=== PATIENT | male | born 1935 | race Caucasian/White ===

== ENCOUNTER 2018-03-18 15:01 | Inpatient (IN) | payer MEDICARE, OTHER ==
[~2018-03-18] VITALS: Ht 182.9 cm; Wt 86.7 kg
[2018-03-18 15:32] VITALS: BP 158/71; PULSE 97; RESP 20; TEMP 97.6; O2SAT 97
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
[2018-03-18 16:28] LABS: AUTOMATED NEUTROPHIL # 4.7 TH/MM3 (1.8-7.7); BASOPHIL % 0.6 % (0.0-2.0); EOSINOPHIL # 0.1 TH/MM3 (0-0.4); EOSINOPHIL % 1.7 % (0.0-4.0); HEMATOCRIT 42.3 % (39.0-51.0); HEMOGLOBIN 14.3 GM/DL (13.0-17.0); LYMPH % 32.2 % (9.0-44.0); LYMPHOCYTE # 2.6 TH/MM3 (1.0-4.8); MEAN CELL VOLUME 85.7 FL (80.0-100.0); MEAN CORPUSCULAR HEMOGLOBIN 28.9 PG (27.0-34.0); MEAN CORPUSCULAR HGB CONC 33.7 % (32.0-36.0); MEAN PLATELET VOLUME 8.7 FL (7.0-11.0); MONO % 7.1 % (0.0-8.0); MONOCYTE # 0.6 TH/MM3 (0-0.9); NEUT % 58.4 % (16.0-70.0); PLATELET COUNT 305 TH/MM3 (150-450); RED BLOOD COUNT 4.94 MIL/MM3 (4.50-5.90); RED CELL DISTRIBUTION WIDTH 13.3 % (11.6-17.2); WHITE BLOOD COUNT 8.1 TH/MM3 (4.0-11.0)
[2018-03-18 16:33] LABS: BILIRUBIN, URINE NEG (NEG); BLOOD, URINE NEG (NEG); GLUCOSE,URINE NEG (NEG); KETONE, URINE NEG (NEG); MUCUS URINE FEW /lpf (OCC); NITRITE,URINE NEG (NEG); URINE COLOR LIGHT-YELLOW (YELLW/STRAW); URINE LEUKOCYTE ESTERASE NEG (NEG)
[2018-03-18 16:45] LABS: ALBUMIN 3.8 GM/DL (3.4-5.0); AST (GOT) 13 U/L (15-37); BICARBONATE 27.2 MEQ/L (21.0-32.0); BLOOD UREA NITROGEN 15 MG/DL (7-18); CALCIUM 8.8 MG/DL (8.5-10.1); CHLORIDE 98 MEQ/L (98-107); CREATININE 1.16 MG/DL (0.60-1.30); GLOMERULAR FILTRATION RATE 60 ML/MIN (>89); GLUCOSE,RANDOM 121 MG/DL (74-106); SODIUM (NA) 137 MEQ/L (136-145)
[2018-03-18 16:46] LABS: ALT (GPT) 19 U/L (12-78)
[2018-03-18 16:56] LABS: ALKALINE PHOSPHATASE 73 U/L (45-117); TOTAL BILIRUBIN ADULT 0.3 MG/DL (0.2-1.0)
[2018-03-18] MEDS ORDERED: LEVO125T4 PO (17:14)
[2018-03-18] MEDS ORDERED: ASPI81TA16 PO (17:14)
[2018-03-18] MEDS ORDERED: LOSA100T PO (17:14)
[2018-03-18] MEDS ORDERED: DEPA125T PO (17:14)
[2018-03-18] MEDS ORDERED: AMLO10 PO (17:14)
[2018-03-18] MEDS ORDERED: VITA500T4 PO (17:14)
[2018-03-18] MEDS ORDERED: SERO25TA PO (17:14)
[2018-03-18] MEDS ORDERED: SENN1TAB27 PO (17:14)
[2018-03-18] MEDS ORDERED: TRAZ50TA12 PO (17:14)
[2018-03-18] MEDS ORDERED: ISOS60TA PO (17:14)
[2018-03-18] MEDS ORDERED: HYDR25TA5 PO (17:14)
[2018-03-18] MEDS ORDERED: MELA3TAB52 PO (17:14)
[2018-03-18] MEDS ORDERED: COLA100C5 PO (17:14)
[2018-03-18] MEDS ORDERED: GABA100C4 PO (17:14)
[2018-03-18] MEDS ORDERED: QUEtiapine FUMARATE 25 MG TAB PO ONE (21:30)
[2018-03-18] MEDS ORDERED: traZODone HCL 50 MG TAB PO ONE (21:30)
[2018-03-18] MEDS ORDERED: DIVALPROEX SODIUM DELAYED RELEASE 125 MG TAB PO ONE (21:30)
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
[2018-03-18 22:47] VITALS: BP 148/68; PULSE 78; RESP 18
[2018-03-19 02:26] VITALS: BP 142/58; PULSE 80; RESP 18; O2SAT 98
[2018-03-19 12:09] VITALS: BP 120/62; PULSE 89; RESP 18; TEMP 98.7; O2SAT 98
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
[2018-03-19] MEDS ORDERED: ACETAMINOPHEN 325 MG TAB PO PRN (15:00)
[2018-03-19] MEDS ORDERED: ALUMINUM/MAGNESIUM/SIMETH 30 ML CUP PO PRN (15:00)
[2018-03-19] MEDS ORDERED: MAGNESIUM HYDROXIDE SUSP 30 ML CUP PO PRN (15:00)
[2018-03-19 15:30] VITALS: BP 136/85; PULSE 92; RESP 18; TEMP 97.8; O2SAT 97
[2018-03-20 06:08] VITALS: BP 125/76; PULSE 52; RESP 18; O2SAT 99
[2018-03-20 11:45] LABS: BICARBONATE 29.1 MEQ/L (21.0-32.0); BLOOD UREA NITROGEN 17 MG/DL (7-18); CALCIUM 9.6 MG/DL (8.5-10.1); CHLORIDE 99 MEQ/L (98-107); CREATININE 1.01 MG/DL (0.60-1.30); GLOMERULAR FILTRATION RATE 71 ML/MIN (>89); GLUCOSE,RANDOM 120 MG/DL (74-106); SODIUM (NA) 137 MEQ/L (136-145)
[2018-03-20 11:46] LABS: CHOLESTEROL 280 MG/DL (120-200)
[2018-03-20 11:48] LABS: CHOLESTEROL/ HDL RATIO 6.94 RATIO; HDL CHOLESTEROL 40.3 MG/DL (40.0-60.0); LDL CHOLESTEROL 174 MG/DL (0-99); TRIGLYCERIDES 329 MG/DL (42-150)
[2018-03-20] MEDS ORDERED: hydrOXYzine HCL 50 MG TAB PO PRN (13:30)
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
[2018-03-20] MEDS ORDERED: PILL SPLITTER OTHER PRN (14:15)
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
[2018-03-20 17:39] VITALS: BP 187/78; PULSE 70; RESP 18; TEMP 97.6; O2SAT 98
[2018-03-20 17:53] VITALS: BP 146/78
[2018-03-20] MEDS ORDERED: QUEtiapine FUMARATE 25 MG TAB PO SCH (21:00)
[2018-03-20] MEDS: DIVALPROEX SODIUM SPRINKLES 125 MG CAP PO SCH (21:00)
[2018-03-20] MEDS: traZODone HCL 50 MG TAB PO SCH (21:00)
[2018-03-20] MEDS: SENNOSIDES 8.6 MG TAB PO SCH (21:09)
[2018-03-20] MEDS: GABAPENTIN 100 MG CAP PO SCH (21:09)
[2018-03-20] MEDS: DOCUSATE SODIUM 100 MG CAP PO SCH (21:09)
[2018-03-20] MEDS: MELATONIN 5 MG TAB PO SCH (21:09)
[2018-03-21 06:04] VITALS: BP 164/70; PULSE 72; RESP 16; TEMP 97.2; O2SAT 97
[2018-03-21] MEDS: LEVOTHYROXINE SODIUM 125 MCG TAB PO SCH (06:41)
[2018-03-21] MEDS: ISOSORBIDE MONONITRATE 60 MG CR TAB (IMDUR) PO SCH (06:41)
[2018-03-21 08:00] VITALS: BP 146/67; PULSE 54
[2018-03-21] MEDS: GABAPENTIN 100 MG CAP PO SCH ×2 (08:36→20:53)
[2018-03-21] MEDS: HYDROCHLOROTHIAZIDE 25 MG TAB PO SCH (08:37)
[2018-03-21] MEDS: DOCUSATE SODIUM 100 MG CAP PO SCH ×2 (08:37→20:52)
[2018-03-21] MEDS: ASPIRIN EC 81 MG TABEC PO SCH (08:37)
[2018-03-21] MEDS: LOSARTAN 50 MG TAB PO SCH (08:37)
[2018-03-21] MEDS: CYANOCOBALAMIN 1,000 MCG TAB PO SCH (08:38)
[2018-03-21] MEDS ORDERED: GLUCAGON 1 MG/ML VIAL OTHER PRN (12:15)
[2018-03-21] MEDS ORDERED: DEXTROSE 50% IN WATER 50 ML VIAL(D50) IV PUSH PRN (12:15)
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
[2018-03-21] MEDS ORDERED: hydrALAZINE HCL 10 MG TAB PO PRN (15:30)
[2018-03-21] MEDS: INSULIN ASPART SUPPLEMENTAL SCALE SQ SCH ×2 (16:43→20:54)
[2018-03-21 17:58] VITALS: BP 131/65; PULSE 77; RESP 18; TEMP 97.6; O2SAT 96
[2018-03-21] MEDS: MELATONIN 5 MG TAB PO SCH (20:52)
[2018-03-21] MEDS: SENNOSIDES 8.6 MG TAB PO SCH (20:54)
[2018-03-22] MEDS: LEVOTHYROXINE SODIUM 125 MCG TAB PO SCH (06:02)
[2018-03-22 06:30] VITALS: BP 157/73; PULSE 79; RESP 18; TEMP 98; O2SAT 98
[2018-03-22] MEDS: ISOSORBIDE MONONITRATE 60 MG CR TAB (IMDUR) PO SCH (06:50)
[2018-03-22] MEDS: INSULIN ASPART SUPPLEMENTAL SCALE SQ SCH ×4 (08:00→21:00)
[2018-03-22] MEDS: ASPIRIN EC 81 MG TABEC PO SCH (09:31)
[2018-03-22] MEDS: LOSARTAN 50 MG TAB PO SCH (09:31)
[2018-03-22] MEDS: DOCUSATE SODIUM 100 MG CAP PO SCH ×2 (09:31→21:07)
[2018-03-22] MEDS: GABAPENTIN 100 MG CAP PO SCH ×2 (09:32→21:10)
[2018-03-22] MEDS: CYANOCOBALAMIN 1,000 MCG TAB PO SCH (09:32)
[2018-03-22] MEDS: HYDROCHLOROTHIAZIDE 25 MG TAB PO SCH (09:32)
[2018-03-22] MEDS: metFORMIN HCL 500 MG TAB PO SCH (09:32)
[2018-03-22] MEDS: DIVALPROEX SODIUM SPRINKLES 125 MG CAP PO SCH ×2 (10:48→21:08)
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
--- NOTE | 2018-03-22 15:35 | PD.TTN ---
Patient Problems 1. Discharge planning 2. Medication compliance 3. Knowledge deficit 4. Lack of coping skills Progress Toward Goals Provider Present: Dr. Sergio Frank Nurse(s) Input: 03/22/18- Joslyn- lupillo compliant/appropriate with staff. Psychiatric Counselors Present: Anjali Lowe LCSW Psych Therapist Input: 03/22/18-Pt. is uncooperative and has no inisght. Group Spec/RT/OT/VILLATORO Present: SHAUNA Bobo Group Spec/RT/OT/VILLATORO Input: 03/22/18- Pt. attends selct groups. Jimbo Aragon March 22, 2018 15:35
[2018-03-22 16:57] VITALS: BP 135/67; PULSE 68; RESP 19; TEMP 98.2; O2SAT 97
[2018-03-22] MEDS: SENNOSIDES 8.6 MG TAB PO SCH (21:09)
[2018-03-22] MEDS: MELATONIN 5 MG TAB PO SCH (21:09)
[2018-03-23] MEDS: LEVOTHYROXINE SODIUM 125 MCG TAB PO SCH (05:53)
[2018-03-23 06:39] VITALS: BP 146/90; PULSE 84; RESP 18; TEMP 97.9; O2SAT 97
[2018-03-23] MEDS: ISOSORBIDE MONONITRATE 60 MG CR TAB (IMDUR) PO SCH (06:46)
[2018-03-23] MEDS: INSULIN ASPART SUPPLEMENTAL SCALE SQ SCH ×4 (08:00→21:47)
[2018-03-23] MEDS: DIVALPROEX SODIUM SPRINKLES 125 MG CAP PO SCH ×3 (09:00→21:43)
[2018-03-23] MEDS ORDERED: hydrALAZINE HCL 10 MG TAB PO SCH (09:00)
[2018-03-23] MEDS: DOCUSATE SODIUM 100 MG CAP PO SCH ×2 (10:18→21:43)
[2018-03-23] MEDS: CYANOCOBALAMIN 1,000 MCG TAB PO SCH (10:19)
[2018-03-23] MEDS: ASPIRIN EC 81 MG TABEC PO SCH (10:19)
[2018-03-23] MEDS: GABAPENTIN 100 MG CAP PO SCH ×2 (10:19→21:44)
[2018-03-23] MEDS: metFORMIN HCL 500 MG TAB PO SCH ×2 (10:19→17:06)
[2018-03-23] MEDS: HYDROCHLOROTHIAZIDE 25 MG TAB PO SCH (10:19)
[2018-03-23] MEDS: LOSARTAN 50 MG TAB PO SCH (10:19)
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
[2018-03-23] MEDS: QUEtiapine FUMARATE 25 MG TAB PO SCH ×2 (15:12→21:43)
[2018-03-23 17:50] VITALS: BP 156/67; PULSE 79; RESP 18; TEMP 97.5; O2SAT 97
[2018-03-23 20:55] VITALS: BP 174/72; PULSE 57; RESP 16
[2018-03-23] MEDS: MELATONIN 5 MG TAB PO SCH (21:43)
[2018-03-23] MEDS: SENNOSIDES 8.6 MG TAB PO SCH (21:44)
[2018-03-23] MEDS: traZODone HCL 50 MG TAB PO SCH (21:44)
[2018-03-24] MEDS: LEVOTHYROXINE SODIUM 125 MCG TAB PO SCH (05:57)
[2018-03-24] MEDS: ISOSORBIDE MONONITRATE 60 MG CR TAB (IMDUR) PO SCH (06:06)
[2018-03-24] MEDS: metFORMIN HCL 500 MG TAB PO SCH ×2 (06:06→15:57)
[2018-03-24] MEDS: INSULIN ASPART SUPPLEMENTAL SCALE SQ SCH ×4 (08:00→21:00)
[2018-03-24] MEDS: ASPIRIN EC 81 MG TABEC PO SCH (08:59)
[2018-03-24] MEDS: HYDROCHLOROTHIAZIDE 25 MG TAB PO SCH (08:59)
[2018-03-24] MEDS: LOSARTAN 50 MG TAB PO SCH (09:00)
[2018-03-24] MEDS: DIVALPROEX SODIUM SPRINKLES 125 MG CAP PO SCH ×2 (09:00→21:45)
[2018-03-24] MEDS: DOCUSATE SODIUM 100 MG CAP PO SCH ×2 (09:00→21:45)
[2018-03-24] MEDS: QUEtiapine FUMARATE 25 MG TAB PO SCH ×4 (09:01→21:45)
[2018-03-24] MEDS: GABAPENTIN 100 MG CAP PO SCH ×2 (09:01→21:45)
[2018-03-24] MEDS: hydrALAZINE HCL 10 MG TAB PO SCH ×3 (09:01→22:58)
[2018-03-24] MEDS: CYANOCOBALAMIN 1,000 MCG TAB PO SCH (09:04)
[2018-03-24 11:57] VITALS: BP 123/60; PULSE 80
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
[2018-03-24 15:44] VITALS: BP 145/62; PULSE 86; RESP 17; TEMP 98.4; O2SAT 95
[2018-03-24] MEDS: traZODone HCL 50 MG TAB PO SCH (21:44)
[2018-03-24] MEDS: MELATONIN 5 MG TAB PO SCH (21:44)
[2018-03-24] MEDS: SENNOSIDES 8.6 MG TAB PO SCH (21:45)
[2018-03-25 06:11] VITALS: BP 117/64; PULSE 90; RESP 18; TEMP 98.2; O2SAT 96
[2018-03-25] MEDS: hydrALAZINE HCL 10 MG TAB PO SCH ×3 (06:24→20:47)
[2018-03-25] MEDS: metFORMIN HCL 500 MG TAB PO SCH ×2 (06:24→16:00)
[2018-03-25] MEDS: LEVOTHYROXINE SODIUM 125 MCG TAB PO SCH (06:25)
[2018-03-25] MEDS: ISOSORBIDE MONONITRATE 60 MG CR TAB (IMDUR) PO SCH (06:25)
[2018-03-25] MEDS: INSULIN ASPART SUPPLEMENTAL SCALE SQ SCH ×4 (08:00→21:00)
[2018-03-25] MEDS: DIVALPROEX SODIUM SPRINKLES 125 MG CAP PO SCH ×2 (09:00→20:46)
[2018-03-25] MEDS: QUEtiapine FUMARATE 25 MG TAB PO SCH ×4 (09:35→21:00)
[2018-03-25] MEDS: DOCUSATE SODIUM 100 MG CAP PO SCH ×2 (09:35→20:45)
[2018-03-25] MEDS: LOSARTAN 50 MG TAB PO SCH (09:36)
[2018-03-25] MEDS: CYANOCOBALAMIN 1,000 MCG TAB PO SCH (09:36)
[2018-03-25] MEDS: ASPIRIN EC 81 MG TABEC PO SCH (09:37)
[2018-03-25] MEDS: HYDROCHLOROTHIAZIDE 25 MG TAB PO SCH (09:37)
[2018-03-25] MEDS: GABAPENTIN 100 MG CAP PO SCH ×2 (09:37→20:45)
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
[2018-03-25 18:52] VITALS: BP 129/64; PULSE 50; TEMP 97.7; O2SAT 97
[2018-03-25] MEDS: traZODone HCL 50 MG TAB PO SCH (20:46)
[2018-03-25] MEDS: MELATONIN 5 MG TAB PO SCH (20:46)
[2018-03-25] MEDS: SENNOSIDES 8.6 MG TAB PO SCH (21:00)
[2018-03-26] MEDS: hydrALAZINE HCL 10 MG TAB PO SCH ×3 (05:57→22:03)
[2018-03-26] MEDS: LEVOTHYROXINE SODIUM 125 MCG TAB PO SCH (05:57)
[2018-03-26] MEDS: ISOSORBIDE MONONITRATE 60 MG CR TAB (IMDUR) PO SCH (05:57)
[2018-03-26] MEDS: metFORMIN HCL 500 MG TAB PO SCH ×2 (05:58→16:00)
[2018-03-26] MEDS: INSULIN ASPART SUPPLEMENTAL SCALE SQ SCH ×4 (06:22→21:00)
[2018-03-26 06:40] VITALS: BP 150/65; PULSE 87; RESP 19; TEMP 97.9; O2SAT 94
[2018-03-26 06:56] VITALS: BP 150/65; PULSE 87; RESP 19; TEMP 97.9; O2SAT 94
[2018-03-26] MEDS: ASPIRIN EC 81 MG TABEC PO SCH (08:40)
[2018-03-26] MEDS: CYANOCOBALAMIN 1,000 MCG TAB PO SCH (08:40)
[2018-03-26] MEDS: DIVALPROEX SODIUM SPRINKLES 125 MG CAP PO SCH ×2 (08:40→21:06)
[2018-03-26] MEDS: DOCUSATE SODIUM 100 MG CAP PO SCH ×2 (08:40→21:06)
[2018-03-26] MEDS: QUEtiapine FUMARATE 25 MG TAB PO SCH ×4 (08:40→21:06)
[2018-03-26] MEDS: GABAPENTIN 100 MG CAP PO SCH ×2 (08:41→21:05)
[2018-03-26] MEDS: HYDROCHLOROTHIAZIDE 25 MG TAB PO SCH (08:41)
[2018-03-26] MEDS: LOSARTAN 50 MG TAB PO SCH (08:41)
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
[2018-03-26 17:26] VITALS: BP 140/76; PULSE 82; RESP 20; TEMP 98; O2SAT 95
[2018-03-26] MEDS: MELATONIN 5 MG TAB PO SCH (21:06)
[2018-03-26 21:31] VITALS: BP 137/59; PULSE 82; RESP 18; TEMP 98.1; O2SAT 94
[2018-03-26] MEDS: traZODone HCL 50 MG TAB PO SCH (22:04)
[2018-03-26] MEDS: SENNOSIDES 8.6 MG TAB PO SCH (22:04)
[2018-03-27 06:00] VITALS: BP 140/66; PULSE 46; RESP 14; TEMP 97.6; O2SAT 94
[2018-03-27] MEDS: LEVOTHYROXINE SODIUM 125 MCG TAB PO SCH (06:09)
[2018-03-27] MEDS: metFORMIN HCL 500 MG TAB PO SCH ×2 (06:09→16:00)
[2018-03-27] MEDS: ISOSORBIDE MONONITRATE 60 MG CR TAB (IMDUR) PO SCH (06:09)
[2018-03-27] MEDS: hydrALAZINE HCL 10 MG TAB PO SCH ×3 (06:10→20:54)
[2018-03-27] MEDS: QUEtiapine FUMARATE 25 MG TAB PO SCH ×4 (08:00→20:47)
[2018-03-27] MEDS: INSULIN ASPART SUPPLEMENTAL SCALE SQ SCH ×4 (08:00→20:52)
[2018-03-27] MEDS: LOSARTAN 50 MG TAB PO SCH (09:00)
[2018-03-27] MEDS: HYDROCHLOROTHIAZIDE 25 MG TAB PO SCH (09:00)
[2018-03-27] MEDS: CYANOCOBALAMIN 1,000 MCG TAB PO SCH (09:03)
[2018-03-27] MEDS: GABAPENTIN 100 MG CAP PO SCH ×2 (09:03→20:46)
[2018-03-27] MEDS: DIVALPROEX SODIUM SPRINKLES 125 MG CAP PO SCH ×2 (09:03→20:52)
[2018-03-27] MEDS: ASPIRIN EC 81 MG TABEC PO SCH (09:03)
[2018-03-27] MEDS: DOCUSATE SODIUM 100 MG CAP PO SCH ×2 (09:03→20:44)
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
[2018-03-27 18:17] VITALS: BP 162/74; PULSE 91; RESP 18; TEMP 97.6; O2SAT 97
[2018-03-27 20:00] VITALS: BP 110/58
[2018-03-27] MEDS: SENNOSIDES 8.6 MG TAB PO SCH (20:46)
[2018-03-27] MEDS: traZODone HCL 50 MG TAB PO SCH (20:47)
[2018-03-27] MEDS: MELATONIN 5 MG TAB PO SCH (20:51)
[2018-03-28 06:32] VITALS: BP 119/72; PULSE 75; RESP 15; TEMP 97.7
[2018-03-28] MEDS: LEVOTHYROXINE SODIUM 125 MCG TAB PO SCH (06:35)
[2018-03-28] MEDS: ISOSORBIDE MONONITRATE 60 MG CR TAB (IMDUR) PO SCH (06:35)
[2018-03-28] MEDS: hydrALAZINE HCL 10 MG TAB PO SCH ×3 (06:35→20:45)
[2018-03-28] MEDS: INSULIN ASPART SUPPLEMENTAL SCALE SQ SCH ×4 (08:00→20:44)
[2018-03-28] MEDS: QUEtiapine FUMARATE 25 MG TAB PO SCH ×4 (08:00→20:41)
[2018-03-28] MEDS: metFORMIN HCL 500 MG TAB PO SCH ×2 (09:00→16:00)
[2018-03-28] MEDS: DIVALPROEX SODIUM SPRINKLES 125 MG CAP PO SCH ×2 (09:00→20:39)
[2018-03-28] MEDS: DOCUSATE SODIUM 100 MG CAP PO SCH ×2 (09:00→20:41)
[2018-03-28] MEDS: LOSARTAN 50 MG TAB PO SCH (09:02)
[2018-03-28] MEDS: ASPIRIN EC 81 MG TABEC PO SCH (09:02)
[2018-03-28] MEDS: HYDROCHLOROTHIAZIDE 25 MG TAB PO SCH (09:02)
[2018-03-28] MEDS: CYANOCOBALAMIN 1,000 MCG TAB PO SCH (09:02)
[2018-03-28] MEDS: GABAPENTIN 100 MG CAP PO SCH ×2 (09:02→20:40)
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
[2018-03-28 18:39] VITALS: BP 100/55; PULSE 55; RESP 16; TEMP 97.6; O2SAT 95
[2018-03-28] MEDS: MELATONIN 5 MG TAB PO SCH (20:40)
[2018-03-28] MEDS: traZODone HCL 50 MG TAB PO SCH (20:41)
[2018-03-28] MEDS: SENNOSIDES 8.6 MG TAB PO SCH (20:41)
[2018-03-29 06:00] VITALS: BP 178/69; PULSE 52; RESP 18; TEMP 97.6; O2SAT 92
[2018-03-29] MEDS: LEVOTHYROXINE SODIUM 125 MCG TAB PO SCH (06:00)
[2018-03-29] MEDS: hydrALAZINE HCL 10 MG TAB PO SCH ×3 (06:00→21:45)
[2018-03-29] MEDS: ISOSORBIDE MONONITRATE 60 MG CR TAB (IMDUR) PO SCH (06:10)
[2018-03-29] MEDS: metFORMIN HCL 500 MG TAB PO SCH ×2 (08:00→16:00)
[2018-03-29] MEDS: INSULIN ASPART SUPPLEMENTAL SCALE SQ SCH ×4 (08:00→21:00)
[2018-03-29] MEDS: QUEtiapine FUMARATE 25 MG TAB PO SCH ×4 (08:00→21:45)
[2018-03-29] MEDS: GABAPENTIN 100 MG CAP PO SCH ×2 (09:00→21:45)
[2018-03-29] MEDS: DIVALPROEX SODIUM SPRINKLES 125 MG CAP PO SCH ×2 (09:00→21:44)
[2018-03-29] MEDS: HYDROCHLOROTHIAZIDE 25 MG TAB PO SCH (09:00)
[2018-03-29] MEDS: CYANOCOBALAMIN 1,000 MCG TAB PO SCH (09:00)
[2018-03-29] MEDS: LOSARTAN 50 MG TAB PO SCH (09:00)
[2018-03-29] MEDS: DOCUSATE SODIUM 100 MG CAP PO SCH ×2 (09:00→21:44)
[2018-03-29] MEDS: ASPIRIN EC 81 MG TABEC PO SCH (09:00)
--- NOTE | 2018-03-29 09:11 | PD.TTN ---
Patient Problems 1. Discharge planning 2. Medication compliance 3. Knowledge deficit 4. Lack of coping skills Progress Toward Goals Provider Present: Dr. Sergio Frank Provider Input: Needs Placement Nurse(s) Input: 03/22/18- Joslyn- med compliant/appropriate with 03/29/18: Med Compliant, Sleeps well, improved Psychiatric Counselors Present: Anjali Lowe, RAILWAY YARD ASSISTANT, Natalie No, [facility], Kenyetta Dumont, [facility] Psych Therapist Input: 03/22/18-Pt. is uncooperative and has no inisght. 03/29/18: Isolates to room Group Spec/RT/OT/VILLATORO Present: ELDA Gilmore, SHAUNA Bobo Group Spec/RT/OT/VILLATORO Input: 03/22/18- Pt. attends select groups with encouragement 03/29/18: Pt has been isolating and needs encouragement to attend the Group activities. Additional Input Needs Placement Documentation Scribe: Yeni Alfaro March 29, 2018 09:11
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
[2018-03-29 17:42] VITALS: BP 138/76; PULSE 85; RESP 18; O2SAT 94
[2018-03-29] MEDS: SENNOSIDES 8.6 MG TAB PO SCH (21:45)
[2018-03-29] MEDS: MELATONIN 5 MG TAB PO SCH (21:45)
[2018-03-29] MEDS: traZODone HCL 50 MG TAB PO SCH (21:45)
[2018-03-30 05:41] VITALS: BP 125/54; PULSE 71; RESP 15; TEMP 97.2; O2SAT 98
[2018-03-30] MEDS: hydrALAZINE HCL 10 MG TAB PO SCH ×3 (06:23→22:00)
[2018-03-30] MEDS: metFORMIN HCL 500 MG TAB PO SCH ×2 (06:23→16:01)
[2018-03-30] MEDS: LEVOTHYROXINE SODIUM 125 MCG TAB PO SCH (06:24)
[2018-03-30] MEDS: ISOSORBIDE MONONITRATE 60 MG CR TAB (IMDUR) PO SCH (06:24)
[2018-03-30] MEDS: INSULIN ASPART SUPPLEMENTAL SCALE SQ SCH ×4 (08:00→21:00)
[2018-03-30] MEDS: ASPIRIN EC 81 MG TABEC PO SCH (08:54)
[2018-03-30] MEDS: DOCUSATE SODIUM 100 MG CAP PO SCH ×2 (08:54→21:00)
[2018-03-30] MEDS: DIVALPROEX SODIUM SPRINKLES 125 MG CAP PO SCH ×2 (08:54→21:00)
[2018-03-30] MEDS: CYANOCOBALAMIN 1,000 MCG TAB PO SCH (08:55)
[2018-03-30] MEDS: GABAPENTIN 100 MG CAP PO SCH ×2 (08:55→21:00)
[2018-03-30] MEDS: QUEtiapine FUMARATE 25 MG TAB PO SCH ×4 (08:56→21:00)
[2018-03-30] MEDS: HYDROCHLOROTHIAZIDE 25 MG TAB PO SCH (08:56)
[2018-03-30] MEDS: LOSARTAN 50 MG TAB PO SCH (08:56)
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
[2018-03-30 13:20] VITALS: BP 134/64; PULSE 64; RESP 18; TEMP 98.1; O2SAT 97
[2018-03-30 18:38] VITALS: BP 119/61; PULSE 68; RESP 17; TEMP 98.1; O2SAT 99
[2018-03-30] MEDS: SENNOSIDES 8.6 MG TAB PO SCH (21:00)
[2018-03-30] MEDS: traZODone HCL 50 MG TAB PO SCH (21:00)
[2018-03-30] MEDS: MELATONIN 5 MG TAB PO SCH (21:00)
[2018-03-31 06:22] VITALS: BP 141/66; PULSE 62; RESP 16; TEMP 97.2; O2SAT 95
[2018-03-31] MEDS: metFORMIN HCL 500 MG TAB PO SCH ×2 (06:30→15:56)
[2018-03-31] MEDS: ISOSORBIDE MONONITRATE 60 MG CR TAB (IMDUR) PO SCH (06:30)
[2018-03-31] MEDS: LEVOTHYROXINE SODIUM 125 MCG TAB PO SCH (06:30)
[2018-03-31] MEDS: hydrALAZINE HCL 10 MG TAB PO SCH ×3 (06:31→21:26)
[2018-03-31] MEDS: INSULIN ASPART SUPPLEMENTAL SCALE SQ SCH ×4 (06:49→21:00)
[2018-03-31] MEDS: HYDROCHLOROTHIAZIDE 25 MG TAB PO SCH (08:51)
[2018-03-31] MEDS: LOSARTAN 50 MG TAB PO SCH (08:51)
[2018-03-31] MEDS: ASPIRIN EC 81 MG TABEC PO SCH (08:51)
[2018-03-31] MEDS: QUEtiapine FUMARATE 25 MG TAB PO SCH ×4 (08:51→21:26)
[2018-03-31] MEDS: GABAPENTIN 100 MG CAP PO SCH ×2 (08:51→21:26)
[2018-03-31] MEDS: CYANOCOBALAMIN 1,000 MCG TAB PO SCH (08:52)
[2018-03-31] MEDS: DIVALPROEX SODIUM SPRINKLES 125 MG CAP PO SCH ×2 (08:52→21:00)
[2018-03-31] MEDS: DOCUSATE SODIUM 100 MG CAP PO SCH ×2 (08:52→21:26)
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
[2018-03-31 18:00] VITALS: BP 126/61; PULSE 55; RESP 16; TEMP 98; O2SAT 95
[2018-03-31] MEDS: MELATONIN 5 MG TAB PO SCH (21:26)
[2018-03-31] MEDS: SENNOSIDES 8.6 MG TAB PO SCH (21:26)
[2018-03-31] MEDS: traZODone HCL 50 MG TAB PO SCH (21:27)
[2018-04-01] MEDS: hydrALAZINE HCL 10 MG TAB PO SCH ×3 (06:00→20:55)
[2018-04-01] MEDS: ISOSORBIDE MONONITRATE 60 MG CR TAB (IMDUR) PO SCH (07:00)
[2018-04-01] MEDS: INSULIN ASPART SUPPLEMENTAL SCALE SQ SCH ×4 (08:00→20:54)
[2018-04-01] MEDS: CYANOCOBALAMIN 1,000 MCG TAB PO SCH (09:00)
[2018-04-01] MEDS: DOCUSATE SODIUM 100 MG CAP PO SCH ×2 (10:03→20:50)
[2018-04-01] MEDS: ASPIRIN EC 81 MG TABEC PO SCH (10:04)
[2018-04-01] MEDS: LOSARTAN 50 MG TAB PO SCH (10:04)
[2018-04-01] MEDS: HYDROCHLOROTHIAZIDE 25 MG TAB PO SCH (10:04)
[2018-04-01] MEDS: GABAPENTIN 100 MG CAP PO SCH ×2 (10:05→20:50)
[2018-04-01] MEDS: DIVALPROEX SODIUM SPRINKLES 125 MG CAP PO SCH ×2 (10:07→20:51)
[2018-04-01] MEDS: metFORMIN HCL 500 MG TAB PO SCH ×2 (10:10→16:03)
[2018-04-01] MEDS: QUEtiapine FUMARATE 25 MG TAB PO SCH ×4 (10:11→20:51)
[2018-04-01] MEDS: LEVOTHYROXINE SODIUM 125 MCG TAB PO SCH (10:11)
[2018-04-01 10:29] VITALS: BP 144/65; PULSE 56; RESP 14; TEMP 97.8
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
[2018-04-01 18:00] VITALS: BP 130/58; PULSE 50; RESP 18; TEMP 97.8; O2SAT 94
[2018-04-01] MEDS: SENNOSIDES 8.6 MG TAB PO SCH (20:50)
[2018-04-01] MEDS: MELATONIN 5 MG TAB PO SCH (20:51)
[2018-04-01] MEDS: traZODone HCL 50 MG TAB PO SCH (20:51)
[2018-04-02 05:32] VITALS: BP 130/63; PULSE 48; RESP 18; TEMP 98.2
[2018-04-02] MEDS: hydrALAZINE HCL 10 MG TAB PO SCH ×3 (06:00→22:00)
[2018-04-02] MEDS: metFORMIN HCL 500 MG TAB PO SCH ×2 (06:06→16:49)
[2018-04-02] MEDS: LEVOTHYROXINE SODIUM 125 MCG TAB PO SCH (06:06)
[2018-04-02] MEDS: ISOSORBIDE MONONITRATE 60 MG CR TAB (IMDUR) PO SCH (06:07)
[2018-04-02] MEDS: INSULIN ASPART SUPPLEMENTAL SCALE SQ SCH ×4 (06:20→21:00)
[2018-04-02] MEDS: ASPIRIN EC 81 MG TABEC PO SCH (08:55)
[2018-04-02] MEDS: DOCUSATE SODIUM 100 MG CAP PO SCH ×2 (08:55→21:00)
[2018-04-02] MEDS: LOSARTAN 50 MG TAB PO SCH (08:55)
[2018-04-02] MEDS: HYDROCHLOROTHIAZIDE 25 MG TAB PO SCH (08:55)
[2018-04-02] MEDS: QUEtiapine FUMARATE 25 MG TAB PO SCH ×4 (08:55→21:00)
[2018-04-02] MEDS: GABAPENTIN 100 MG CAP PO SCH ×2 (08:55→21:00)
[2018-04-02] MEDS: CYANOCOBALAMIN 1,000 MCG TAB PO SCH (08:56)
[2018-04-02] MEDS: DIVALPROEX SODIUM SPRINKLES 125 MG CAP PO SCH ×2 (08:56→21:00)
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
[2018-04-02 13:22] VITALS: BP 125/57; PULSE 41; PULSE 63
[2018-04-02 18:47] VITALS: BP 120/64; PULSE 54; RESP 16; TEMP 98.2; O2SAT 95
[2018-04-02] MEDS: MELATONIN 5 MG TAB PO SCH (21:00)
[2018-04-02] MEDS: SENNOSIDES 8.6 MG TAB PO SCH (21:00)
[2018-04-02] MEDS: traZODone HCL 50 MG TAB PO SCH (21:00)
[2018-04-03] MEDS: LEVOTHYROXINE SODIUM 125 MCG TAB PO SCH (06:46)
[2018-04-03] MEDS: metFORMIN HCL 500 MG TAB PO SCH ×2 (06:46→16:36)
[2018-04-03] MEDS: hydrALAZINE HCL 10 MG TAB PO SCH ×3 (06:46→22:15)
[2018-04-03 07:00] VITALS: BP 157/71; PULSE 39; RESP 17; TEMP 97.6; O2SAT 93
[2018-04-03] MEDS: ISOSORBIDE MONONITRATE 60 MG CR TAB (IMDUR) PO SCH (07:00)
[2018-04-03] MEDS: INSULIN ASPART SUPPLEMENTAL SCALE SQ SCH ×4 (08:00→21:00)
[2018-04-03] MEDS: QUEtiapine FUMARATE 25 MG TAB PO SCH ×4 (08:00→21:19)
[2018-04-03] MEDS: CYANOCOBALAMIN 1,000 MCG TAB PO SCH (09:00)
[2018-04-03] MEDS: LOSARTAN 50 MG TAB PO SCH (09:00)
[2018-04-03] MEDS: HYDROCHLOROTHIAZIDE 25 MG TAB PO SCH (10:11)
[2018-04-03] MEDS: DOCUSATE SODIUM 100 MG CAP PO SCH ×2 (10:12→21:20)
[2018-04-03] MEDS: DIVALPROEX SODIUM SPRINKLES 125 MG CAP PO SCH ×2 (10:12→21:19)
[2018-04-03] MEDS: ASPIRIN EC 81 MG TABEC PO SCH (10:12)
[2018-04-03] MEDS: GABAPENTIN 100 MG CAP PO SCH ×2 (10:13→21:19)
[2018-04-03 10:24] VITALS: PULSE 47
[2018-04-03 14:02] VITALS: BP 156/67; PULSE 52; RESP 18; TEMP 97.9; O2SAT 98
--- NOTE | 2018-04-03 14:27 | HHI.PYPN ---
Subjective Chief Complaint: Patient demented with [facility]ive behavior at the [facility] Remarks Reviewed electronic medical record discussed case with staff. Staff reports the patient has had no behaviors he has been cooperative and has a good sense of humor. He has been compliant with his medications. Follow-up was performed in patient's room with nurse present. The patient confused and disorganized today. He was unable to remember that he had just come back from eating hot dogs and hamburgers in the activity room. He was unable to answer any of my questions as to his present condition. 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 Mental Status Examination Appearance: Disheveled Consciousness: Other (Dozing) Motor Activity: Other (No motor abnormalities noted) Speech: Other (No speech during my evaluation) Mood: Other (Calm) Affect: Flat Thought Process & Associations: Other (Limited sample) Hallucination Type: Other (Does not appear to be responding to internal stimuli ) Delusion Type: Other (Limited sample) Suicidal Ideation: No (None voiced) Homicidal Ideation: No (None voiced) Insight: Poor Judgment: Poor Results Vitals/IOs Vital Signs Date Time Temp Pulse Resp B/P (MAP) Pulse Ox O2 Delivery O2 Flow Rate FiO2 04/03/18 14:02 97.9 52 18 156/67 (96) 98 Assessment & Plan Problem List: (1) ALZHEIMER'S DISEASE WITH LATE ONSET ICD Codes: G30.1 - ALZHEIMER'S DISEASE WITH LATE ONSET (2) DEMENTIA IN OTH DISEASES CLASSD ELSWHR W BEHAVIORAL DISTURB ICD Codes: F02.81 - DEMENTIA IN OTH DISEASES CLASSD ELSWHR W BEHAVIORAL DISTURB Assessment & Plan Estimated LOS: Continue with current treatment plan as ordered. Patient's attending psychiatrist will reevaluate tomorrow. Days Justification for Cont. Inpt. Moving this patient to a lower level of care would likely result and decompensation. Request HC Surrog/Guard Advoc?: Yes Lucille Smart April 03, 2018 14:27
[2018-04-03 18:11] VITALS: BP 140/76; PULSE 50; RESP 16; TEMP 98.2; O2SAT 95
[2018-04-03] MEDS: traZODone HCL 50 MG TAB PO SCH (21:18)
[2018-04-03] MEDS: MELATONIN 5 MG TAB PO SCH (21:18)
[2018-04-03] MEDS: SENNOSIDES 8.6 MG TAB PO SCH (21:18)
[2018-04-03 21:31] VITALS: BP 160/70; PULSE 60
[2018-04-04] MEDS: hydrALAZINE HCL 10 MG TAB PO SCH ×2 (06:08→14:00)
[2018-04-04] MEDS: LEVOTHYROXINE SODIUM 125 MCG TAB PO SCH (06:09)
[2018-04-04] MEDS: metFORMIN HCL 500 MG TAB PO SCH ×2 (06:54→15:37)
[2018-04-04] MEDS: ISOSORBIDE MONONITRATE 60 MG CR TAB (IMDUR) PO SCH (06:55)
[2018-04-04 06:56] VITALS: BP 152/65; PULSE 64; RESP 22; TEMP 98.1; O2SAT 97
[2018-04-04] MEDS: INSULIN ASPART SUPPLEMENTAL SCALE SQ SCH ×3 (07:37→15:37)
[2018-04-04] MEDS: DOCUSATE SODIUM 100 MG CAP PO SCH (08:50)
[2018-04-04] MEDS: HYDROCHLOROTHIAZIDE 25 MG TAB PO SCH (08:51)
[2018-04-04] MEDS: DIVALPROEX SODIUM SPRINKLES 125 MG CAP PO SCH (08:51)
[2018-04-04] MEDS: GABAPENTIN 100 MG CAP PO SCH (08:51)
[2018-04-04] MEDS: CYANOCOBALAMIN 1,000 MCG TAB PO SCH (08:51)
[2018-04-04] MEDS: LOSARTAN 50 MG TAB PO SCH (08:51)
[2018-04-04] MEDS: ASPIRIN EC 81 MG TABEC PO SCH (08:51)
[2018-04-04] MEDS: QUEtiapine FUMARATE 25 MG TAB PO SCH ×2 (08:52→12:00)
[2018-04-04 12:08] VITALS: BP 126/55; PULSE 52; RESP 14; O2SAT 93
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
[2018-04-04 15:08] VITALS: BP 108/52; PULSE 46; RESP 16; O2SAT 92
[2018-04-04 15:40] VITALS: PULSE 42; RESP 14; O2SAT 97
[2018-04-04 15:45] LABS: HEMATOCRIT 42.1 % (39.0-51.0); MEAN CELL VOLUME 86.1 FL (80.0-100.0); MEAN CORPUSCULAR HEMOGLOBIN 28.6 PG (27.0-34.0); MEAN CORPUSCULAR HGB CONC 33.2 % (32.0-36.0); MEAN PLATELET VOLUME 9.7 FL (7.0-11.0); PLATELET COUNT 212 TH/MM3 (150-450); RED BLOOD COUNT 4.89 MIL/MM3 (4.50-5.90); RED CELL DISTRIBUTION WIDTH 13.3 % (11.6-17.2); WHITE BLOOD COUNT 7.5 TH/MM3 (4.0-11.0)
[2018-04-04] MEDS ORDERED: QUEtiapine FUMARATE 25 MG TAB PO SCH (16:00)
[2018-04-04 16:09] LABS: BICARBONATE 32.2 MEQ/L (21.0-32.0); CALCIUM 9.3 MG/DL (8.5-10.1); CREATININE 1.16 MG/DL (0.60-1.30)
[2018-04-04] MEDS ORDERED: RESP: ALBUTEROL 2.5 MG/IPRATROPIUM 0.5 MG NEB (PRN) NEB (16:45)
[2018-04-04] MEDS ORDERED: RESP: ALBUTEROL 2.5 MG/IPRATROPIUM 0.5 MG NEB (SCH) NEB ONE (16:50)
[2018-04-04 17:27] VITALS: BP 107/52; PULSE 51; RESP 16; TEMP 98; O2SAT 93
[2018-04-04 17:51] LABS: TROPONIN I 0.53 NG/ML (0.02-0.05)
--- NOTE | 2018-04-04 18:20 | RADRPT ---
EXAM DATE: 04/04/2018 6:16 PM EDT AGE/SEX: 82 years / Male INDICATIONS: Shortness of breath. CLINICAL DATA: This is the patient's initial encounter. Patient reports that signs and symptoms have been present for 1 day and indicates a pain score of 0/10. MEDICAL/SURGICAL HISTORY: None. CABG. COMPARISON: No prior [place] exams available for comparison. FINDINGS: A single AP view of the chest demonstrates the lungs to be symmetrically aerated without evidence of mass, infiltrate or effusion. The cardiomediastinal contours are unremarkable. There is evidence of previous cardiothoracic surgery. Osseous structures are intact. CONCLUSION: No acute intrathoracic disease. Electronically signed by: Elvis Quinones MD 04/04/2018 6:18 PM EDT
[2018-04-04 18:55] VITALS: BP 116/57; PULSE 40; RESP 14; TEMP 98.3; O2SAT 93
[2018-04-04 22:17] LABS: TROPONIN I 0.46 NG/ML (0.02-0.05)
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
--- NOTE | 2018-04-05 14:10 | EKG ---
Date Performed: 04/04/2018 Time Performed: 19:11:48 PTAGE: 82 years EKG: ATRIAL FIBRILLATION WITH SLOW VENTRICULAR RESPONSE MODERATE ST DEPRESSION ABNORMAL ECG PREVIOUS TRACING : 04/04/2018 12.32 DOCTOR: Jeremy Valentine Interpretating Date/Time 04/05/2018 14:08:08
--- NOTE | 2018-04-05 14:25 | EKG ---
Date Performed: 04/04/2018 Time Performed: 12:32:32 PTAGE: 82 years EKG: ATRIAL FIBRILLATION WITH SLOW VENTRICULAR RESPONSE WITH ABERRANT CONDUCTION OR VENTRICULAR PREMATURE COMPLEXES MODERATE ST DEPRESSION ABNORMAL ECG NO PREVIOUS TRACING DOCTOR: Jeremy Valentine Interpretating Date/Time 04/05/2018 14:24:37
[2018-04-06] MEDS ORDERED: ASPIRIN 325 MG TAB PO SCH (09:00)
== END 2018-04-04 19:46 | disposition short-term general hospital (02) | DRG 57 ==
LOC: NEPD 15:01 → NEDA 03-19 14:50 → H260 03-19 15:30 → H250 03-24 19:08 → H260 03-30 05:40 → H250 04-03 22:06
PROVIDERS: ADMIT Psychiatry & Neurology Psychiatry; ATTEND Psychiatry & Neurology Psychiatry
DX: G30.1 Alzheimer's disease with late onset (principal); F02.81 Dementia in other diseases classified elsewhere, unspecified severity, with behavioral disturbance; E11.65 Type 2 diabetes mellitus with hyperglycemia; I48.91 Unspecified atrial fibrillation; R00.1 Bradycardia, unspecified; E03.9 Hypothyroidism, unspecified; E87.6 Hypokalemia; I10 Essential (primary) hypertension; R06.02 Shortness of breath; I25.10 Atherosclerotic heart disease of native coronary artery without angina pectoris; Z79.82 Long term (current) use of aspirin; Z87.891 Personal history of nicotine dependence; Z95.1 Presence of aortocoronary bypass graft; Z88.5 Allergy status to narcotic agent; Z88.8 Allergy status to other drugs, medicaments and biological substances
CPT/HCPCS: 71045; 80048; 80053; 80061; 80164; 80307; 81001; 82140; 82550; 82948; 83036; 84443; 84484; 85025; 85027; 93005; 94664; 99285; J1815

== ENCOUNTER 2018-04-04 20:15 | Inpatient (IN) | payer MEDICARE, OTHER ==
[~2018-04-04] VITALS: Ht 182.9 cm; Wt 83.9 kg
[2018-04-04] MEDS: SODIUM CHLORIDE 0.9% FLUSH 10 ML FLUSH IV FLUSH SCH
[2018-04-04 19:40] VITALS: BP 148/73; PULSE 49; RESP 16; TEMP 97.7; O2SAT 94
[~2018-04-04 20:15] MED LIST: AMLO10 PO; ASPI81TA16 PO; COLA100C5 PO; DEPA125T PO; GABA100C4 PO; HYDR25TA5 PO; ISOS60TA PO; LEVO125T4 PO; LOSA100T PO; MELA3TAB52 PO; SENN1TAB27 PO; SERO25TA PO; TRAZ50TA12 PO; VITA500T4 PO
[2018-04-04] MEDS ORDERED: ACETAMINOPHEN 325 MG TAB PO PRN (20:30)
[2018-04-04] MEDS ORDERED: SODIUM CHLORIDE 0.9% FLUSH 10 ML FLUSH IV FLUSH PRN (20:30)
[2018-04-04] MEDS ORDERED: NALOXONE HCL 0.4 MG/ML AMP IV PUSH PRN (20:30)
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
[2018-04-04 23:10] VITALS: BP 126/61; PULSE 48; RESP 16; TEMP 97.4; O2SAT 96
[2018-04-04 23:44] VITALS: PULSE 37
[2018-04-04] MEDS ORDERED: RESP: ALBUTEROL 2.5 MG/IPRATROPIUM 0.5 MG NEB (PRN) NEB (23:45)
[2018-04-04] MEDS ORDERED: DEXTROSE 50% IN WATER 50 ML VIAL(D50) IV PUSH PRN (23:45)
[2018-04-04] MEDS ORDERED: GLUCAGON 1 MG/ML VIAL OTHER PRN (23:45)
[2018-04-05] VITALS: BP 122/68; PULSE 51; RESP 16; TEMP 97.1; O2SAT 96
[2018-04-05] MEDS ORDERED: MAGNESIUM HYDROXIDE SUSP 30 ML CUP PO PRN
[2018-04-05] MEDS ORDERED: hydrOXYzine HCL 50 MG TAB PO PRN
[2018-04-05] MEDS ORDERED: MELATONIN 5 MG TAB PO PRN
[2018-04-05 03:55] VITALS: BP 150/76; PULSE 52; RESP 16; TEMP 97.9; O2SAT 100
[2018-04-05 05:31] LABS: AUTOMATED NEUTROPHIL # 3.4 TH/MM3 (1.8-7.7); BASOPHIL % 0.5 % (0.0-2.0); EOSINOPHIL # 0.2 TH/MM3 (0-0.4); EOSINOPHIL % 2.4 % (0.0-4.0); HEMATOCRIT 42.5 % (39.0-51.0); HEMOGLOBIN 14.3 GM/DL (13.0-17.0); LYMPH % 39.6 % (9.0-44.0); LYMPHOCYTE # 2.7 TH/MM3 (1.0-4.8); MEAN CELL VOLUME 85.7 FL (80.0-100.0); MEAN CORPUSCULAR HEMOGLOBIN 28.8 PG (27.0-34.0); MEAN CORPUSCULAR HGB CONC 33.6 % (32.0-36.0); MEAN PLATELET VOLUME 9.8 FL (7.0-11.0); MONO % 8.2 % (0.0-8.0); MONOCYTE # 0.6 TH/MM3 (0-0.9); NEUT % 49.3 % (16.0-70.0); PLATELET COUNT 206 TH/MM3 (150-450); RED BLOOD COUNT 4.96 MIL/MM3 (4.50-5.90); RED CELL DISTRIBUTION WIDTH 13.3 % (11.6-17.2); WHITE BLOOD COUNT 6.9 TH/MM3 (4.0-11.0)
[2018-04-05 06:01] LABS: BICARBONATE 31.2 MEQ/L (21.0-32.0); CALCIUM 9.2 MG/DL (8.5-10.1); CREATININE 1.09 MG/DL (0.60-1.30)
[2018-04-05 06:05] LABS: TROPONIN I 0.55 NG/ML (0.02-0.05)
[2018-04-05] MEDS: ISOSORBIDE MONONITRATE 60 MG CR TAB (IMDUR) PO SCH (06:35)
[2018-04-05] MEDS: LEVOTHYROXINE SODIUM 125 MCG TAB PO SCH (06:35)
[2018-04-05] MEDS: INSULIN ASPART SUPPLEMENTAL SCALE SQ SCH ×4 (08:00→21:00)
[2018-04-05 08:10] VITALS: BP 173/65; PULSE 51; RESP 18; TEMP 98.1; O2SAT 98
[2018-04-05] MEDS: GABAPENTIN 100 MG CAP PO SCH ×2 (08:24→22:04)
[2018-04-05] MEDS: SODIUM CHLORIDE 0.9% FLUSH 10 ML FLUSH IV FLUSH SCH ×2 (08:24→22:05)
[2018-04-05] MEDS: HYDROCHLOROTHIAZIDE 25 MG TAB PO SCH (08:25)
[2018-04-05] MEDS: LOSARTAN 50 MG TAB PO SCH (08:25)
[2018-04-05] MEDS: ASPIRIN EC 81 MG TABEC PO SCH (08:25)
[2018-04-05] MEDS: DIVALPROEX DR 500 MG TABEC PO SCH ×2 (08:26→22:04)
--- NOTE | 2018-04-05 08:41 | HHI.PR ---
Subjective Remarks in no acute distress. denies chest pain or sob. looks comfortable. Objective Vitals Vital Signs Date Time Temp Pulse Resp B/P (MAP) Pulse Ox O2 Delivery O2 Flow Rate FiO2 04/05/18 03:55 97.9 52 16 150/76 (100) 100 04/05/18 00:00 97.1 51 16 122/68 (86) 96 04/05/18 00:00 Room Air 04/04/18 23:44 37 04/04/18 23:10 97.4 48 16 126/61 (82) 96 04/04/18 19:40 97.7 49 16 148/73 (98) 94 I/O 04/04/18 04/04/18 04/04/18 04/05/18 04/05/18 04/05/18 07:00 15:00 23:00 07:00 15:00 23:00 Intake Total 0 ml Balance 0 ml Intake Oral 0 ml # Voids 2 # Bowel Movements 0 Result Diagram: 04/05/1842004/05/18420 Objective Remarks GENERAL: This is a well-nourished, well-developed patient, in no apparent distress. CARDIOVASCULAR: bradycardic. RESPIRATORY: Clear to auscultation. Breath sounds equal bilaterally. No wheezes , rales, or rhonchi. GASTROINTESTINAL: Abdomen soft, non-tender, nondistended. Normal, active bowel sounds MUSCULOSKELETAL: Extremities without clubbing, cyanosis, or edema. NEURO: awake and alert, oriented to person and place but not to time. Medications and IVs Inpatient Medications Acetaminophen (Tylenol) 650 mg Q4H PRN PO TEMP > 100.4; Start 04/04/18 at 20:30 Albuterol/ Ipratropium (Duoneb Neb) 1 ampule Q4HR NEB PRN NEB SOB/WHEEZING; Start 04/04/18 at 23:45 Amlodipine Besylate (Norvasc) 10 mg DAILY PO Last administered on 04/05/18at 08: 25; Start 04/05/18 at 09:00 Aspirin (Aspirin) 325 mg DAILY PO ; Start 04/05/18 at 09:00; Stop 04/05/18 at 09 :00; Status DC Aspirin (Ecotrin Ec) 81 mg DAILY PO Last administered on 04/05/18at 08:25; Start 04/05/18 at 09:00 Dextrose (D50w (Vial) Inj) 50 ml UNSCH PRN IV PUSH HYPOGLYCEMIA-SEE COMMENTS; Start 04/04/18 at 23:45 Divalproex Sodium (Depakote Dr) 500 mg BID PO Last administered on 04/05/18at 08 :26; Start 04/05/18 at 09:00 Gabapentin (Neurontin) 200 mg BID PO Last administered on 04/05/18at 08:24; Start 04/05/18 at 09:00 Glucagon (Glucagon Inj) 1 mg UNSCH PRN OTHER HYPOGLYCEMIA-SEE COMMENTS; Start 04/04/18 at 23:45 Hydrochlorothiazide (Hydrodiuril) 25 mg DAILY PO Last administered on at 08:25; Start 04/05/18 at 09:00 Hydroxyzine HCl (Atarax) 50 mg Q6H PRN PO anxiety; Start 04/05/18 at 00:00 Insulin Aspart (NovoLOG SUPPLEMENTAL SCALE) 1 ACHS SLIDING SCALE SQ ; Start at 08:00 Isosorbide Mononitrate (Imdur) 60 mg DAILY@07 PO Last administered on at 06:35; Start 04/05/18 at 07:00 Levothyroxine Sodium (Synthroid) 125 mcg DAILY@0700 PO Last administered on at 06:35; Start 04/05/18 at 07:00 Losartan Potassium (Cozaar) 100 mg DAILY PO Last administered on 04/05/18at 08: 25; Start 04/05/18 at 09:00 Magnesium Hydroxide (Milk Of Magnesia Liq) 30 ml Q6HR PRN PO DYSPEPSIA; Start 04/05/18 at 00:00 Melatonin (Melatonin) 5 mg HS PRN PO INSOMNIA; Start 04/05/18 at 00:00 Naloxone HCl (Narcan Inj) 0.4 mg UNSCH PRN IV PUSH SEE LABEL COMMENTS; Start at 20:30 Sodium Chloride (NS Flush) 2 ml BID IV FLUSH Last administered on 04/05/18at 08: 24; Start 04/04/18 at 21:00 A/P Problem List: (1) NSTEMI (non-ST elevated myocardial infarction) ICD Code: I21.4 - Non-ST elevation (NSTEMI) myocardial infarction (2) Atrial fibrillation ICD Code: I48.91 - Unspecified atrial fibrillation (3) Bradycardia ICD Code: R00.1 - Bradycardia, unspecified (4) ALZHEIMER'S DISEASE WITH LATE ONSET ICD Code: G30.1 - ALZHEIMER'S DISEASE WITH LATE ONSET (5) DEMENTIA IN OTH DISEASES CLASSD ELSWHR W BEHAVIORAL DISTURB ICD Code: F02.81 - DEMENTIA IN OTH DISEASES CLASSD ELSWHR W BEHAVIORAL DISTURB Assessment and Plan A/P Atrial fibrillation, possibly new onset, bradycardic rate elevated troponin. - patient was seen by Dr. Marquez, it director, in psychiatric unit - assistance appreciated - rate is bradycardic - patient has DNR code status including ACLS drugs - palliative care consultation requested by patient's - appreciate assistance with clarification of goals of treatment - holding psychotropic medications per psychiatry recommendations - consulted psychiatry for further assistance with management - appreciate assistance - Baby aspirin as recommended by cardiology; not a good candidate for anticoagulation. -echo pending. Resumed all prior medications with the exception of the psychotropics DVT prophylaxis - patient a poor candidate for chemoprophylaxis due to falls - SCDs/TEDs Discharge Planning pending palliative and psych evaluation. Yasmine Sandoval MD April 05, 2018 08:40
[2018-04-05] MEDS ORDERED: POTASSIUM CHLORIDE 20 MEQ CONTROLLED RELEASE TAB PO ONE (08:45)
[2018-04-05] MEDS ORDERED: ASPIRIN 325 MG TAB PO SCH (09:00)
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
[2018-04-05 12:10] VITALS: BP 168/66; PULSE 54; RESP 18; TEMP 98; O2SAT 98
--- NOTE | 2018-04-05 12:48 | PD.PSY.CON ---
Provisional Diagnosis Admission Date April 04, 2018 at 20:15 [place] I. 1. 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 Deferred History of Present Illness Service Psychiatry Consult Requested By TD Ocasio Reason for Consult Transfer from inpatient psychiatric unit. Assistance with behavioral management recommendations. Primary Care Physician DO ALBAN Jackson Mr. Harper is an 82-year-old male with a history of dementia who was transferred from the inpatient psychiatric unit to the medical floor secondary to bradycardia. Reviewing notes and vitals from the psychiatric unit, it appears that patient's bradycardic trend began about 5 days ago, although he had had episodes of low heart rate prior to that. I do not see any medication change associated with onset of bradycardia, although I do note that Dr. Frank endeavored to taper Seroquel to lessen degree of bradycardia. Since arriving on the medical floor, patient's pulse has remained stable, if still somewhat bradycardic. EMR reviewed. Patient seen and examined. Chart reviewed. Case discussed with nursing staff on the medical floor. Per nursing staff, patient has been persistently confused. He is somewhat resistive of care, RN suspects because patient does not understand what is being done for him. He did apparently endeavor to walk down the saul naked at one point. Otherwise, patient has been no significant behavioral problem. On my examination today, the patient is quite confused. He tells me "[place] He believes that he is in his mother's house. He does not know the date. His registration is 3 out of 3 and his recall is 0 out of 3 at 3 minutes. He is able to name only 1 of 2 items. He is unable to repeat a phrase. He cannot complete WORLD backward or vigilance A testing. He denies SI or HI. He denies AVH. He is a alexithymic when asked about mood. Psychiatric interview is limited because of patient's cognitive impairment, and I am unable to obtain any meaningful past psychiatric, family, chemical dependency or social history from the patient for the same reason. No acute physical complaints. Review of Systems ROS Limitations: Poor Historian Other Limited ROS secondary to above Past Family Social History Coded Allergies: codeine (Verified Allergy, Unknown, 03/18/18) donepezil (Verified Allergy, Unknown, 03/18/18) Past Medical History See EMR Reported Medications Sennosides (Senna Lax) 8.6 Mg Tab, 17.2 MG PO HS for Constipation 03/18/18 Melatonin (Melatonin) 3 Mg Tab, 6 MG PO HS for Insomnia 03/18/18 Hydrochlorothiazide (Hydrochlorothiazide) 25 Mg Tab, 25 MG PO DAILY for HTN, # 30 TAB 0 Refills 03/18/18 Cyanocobalamin (Vitamin B-12) 500 Mcg Tab, 1000 MCG PO DAILY for Nutritional Supplement, #1 BOTTLE 0 Refills 03/18/[address] (Aspirin Adult Low Strength) 81 Mg Tabdr, 81 MG PO DAILY for CAD, TAB 03/18/18 Docusate Sodium (Colace) 100 Mg Capsule, 100 MG PO BID for Prevent Constipation , #60 CAP 0 Refills 03/18/18 Trazodone (Trazodone) 50 Mg Tab, 25 MG PO HS for Control Depression, #30 TAB 0 Refills 03/18/18 Quetiapine (Seroquel) 25 Mg Tab, 25 MG PO HS for Dementia, #30 TAB 0 Refills 03/18/18 Amlodipine (Norvasc) 10 Mg Tab, 10 MG PO HS for Blood Pressure Management, #30 TAB 0 Refills 03/18/18 Isosorbide Mononitrate ER (Isosorbide Mononitrate ER) 60 Mg Tab, 60 MG PO DAILY for Prevent Chest Pain, #30 TAB 0 Refills 03/18/18 Losartan (Losartan) 100 Mg Tab, 100 MG PO DAILY for Blood Pressure Management, # 30 TAB 0 Refills 03/18/18 Levothyroxine (Levothyroxine) 125 Mcg Tab, 125 MCG PO DAILY for Thyroid, #30 TAB 0 Refills 03/18/18 Gabapentin (Gabapentin) 100 Mg Cap, 200 MG PO BID, #60 CAP 0 Refills 03/18/[address] (Depakote DR) 125 Mg Tabdr, 375 MG PO BID for Control Seizures, # 60 TAB 0 Refills 03/18/18 Current Medications Medications (Trade) Dose Ordered Sig/Raymond Route Start Time Stop Time Status Last Admin (NS Flush) 2 ml UNSCH PRN IV FLUSH 04/04/18 20:30 (NS Flush) 2 ml BID IV FLUSH 04/04/18 21:00 04/05/18 08:24 (Tylenol) 650 mg Q4H PRN PO 04/04/18 20:30 (Narcan Inj) 0.4 mg UNSCH PRN IV PUSH 04/04/18 20:30 (Duoneb Neb) 1 ampule Q4HR NEB PRN NEB 04/04/18 23:45 (D50w (Vial) Inj) 50 ml UNSCH PRN IV PUSH 04/04/18 23:45 (Glucagon Inj) 1 mg UNSCH PRN OTHER 04/04/18 23:45 (NovoLOG SUPPLEMENTAL SCALE) 1 ACHS SLIDING SCALE SQ 04/05/18 08:00 04/05/18 12:25 (Depakote Dr) 500 mg BID PO 04/05/18 09:00 04/05/18 08:26 (Hydrodiuril) 25 mg DAILY PO 04/05/18 09:00 04/05/18 08:25 (Cozaar) 100 mg DAILY PO 04/05/18 09:00 04/05/18 08:25 (Imdur) 60 mg DAILY@07 PO 04/05/18 07:00 04/05/18 06:35 (Synthroid) 125 mcg DAILY@0700 PO 04/05/18 07:00 04/05/18 06:35 (Norvasc) 10 mg DAILY PO 04/05/18 09:00 04/05/18 08:25 (Neurontin) 200 mg BID PO 04/05/18 09:00 04/05/18 08:24 (Atarax) 50 mg Q6H PRN PO 04/05/18 00:00 (Milk Of Magnesia Liq) 30 ml Q6HR PRN PO 04/05/18 00:00 (Melatonin) 5 mg HS PRN PO 04/05/18 00:00 (Ecotrin Ec) 81 mg DAILY PO 04/05/18 09:00 04/05/18 08:25 Patient's Strengths (min. 2) In a monitored setting. Retains some verbal fluency. Physical Exam Physical exam completed by primary team. On my examination today, the patient appears to be in no acute physical distress. No motor abnormalities noted. Labs and vitals reviewed: Vital Signs Vital Signs Date Time Temp Pulse Resp B/P (MAP) Pulse Ox O2 Delivery O2 Flow Rate FiO2 04/05/18 08:10 98.1 51 18 173/65 (101) 98 04/05/18 08:00 Room Air I/O 04/05/18 04/05/18 04/06/18 08:00 16:00 00:00 Intake Total 0 ml Balance 0 ml Lab Results Test 04/05/18 04:21 White Blood Count 6.9 TH/MM3 Red Blood Count 4.96 MIL/MM3 Hemoglobin 14.3 GM/DL Hematocrit 42.5 % Mean Corpuscular Volume 85.7 FL Mean Corpuscular Hemoglobin 28.8 PG Mean Corpuscular Hemoglobin Concent 33.6 % Red Cell Distribution Width 13.3 % Platelet Count 206 TH/MM3 Mean Platelet Volume 9.8 FL Neutrophils (%) (Auto) 49.3 % Lymphocytes (%) (Auto) 39.6 % Monocytes (%) (Auto) 8.2 % Eosinophils (%) (Auto) 2.4 % Basophils (%) (Auto) 0.5 % Neutrophils # (Auto) 3.4 TH/MM3 Lymphocytes # (Auto) 2.7 TH/MM3 Monocytes # (Auto) 0.6 TH/MM3 Eosinophils # (Auto) 0.2 TH/MM3 Basophils # (Auto) 0.0 TH/MM3 CBC Comment DIFF FINAL Differential Comment Blood Urea Nitrogen 23 MG/DL Creatinine 1.09 MG/DL Random Glucose 99 MG/DL Calcium Level 9.2 MG/DL Sodium Level 138 MEQ/L Potassium Level 3.4 MEQ/L Chloride Level 97 MEQ/L Carbon Dioxide Level 31.2 MEQ/L Anion Gap 10 MEQ/L Estimat Glomerular Filtration Rate 65 ML/MIN Troponin I 0.55 NG/ML Valproic Acid (Depakene) Level 57 MCG/ML EKG from 04/04 reveals A. fib with slow ventricular response with QTC of 391 ms. Mental Status Examination Appearance: Disheveled Consciousness: Alert Orientation: Person Motor Activity: Other (No motor abnormalities noted) Speech: Slow Language: Adequate Fund of Knowledge: Inadequate Attention and Concentration: Inadequate Memory: Impaired Mood: Other (Calm) Affect: Flat Thought Process & Associations: Other (Slowed) Thought Content: Other (Poverty of thought) Hallucination Type: None Delusion Type: None Suicidal Ideation: No Homicidal Ideation: No Insight: Poor Judgment: Poor Assessment & Plan Problem List: (1) Dementia ICD Codes: F03.90 - Unspecified dementia without behavioral disturbance Assessment & Plan 82-year-old male with psychiatric history as detailed above who is presently admitted to the medical floor in transfer from the psychiatric unit following episode of bradycardia. Psychiatry is consulted for ongoing management. Psychotropic medications are presently on hold as I was concerned that they may be exacerbating patient's bradycardia. Patient's behaviors are perhaps mildly exacerbated off of psychotropics. I would replace the Seroquel with less sedating antipsychotic. Recommend Abilify 1mg PO BID to start, and this can be titrated to effect so long as it is well tolerated and does not exacerbate bradycardia. I have taken the liberty of initiating this agent. Could consider placing with a sitter for behavioral redirection, if needed. Patient' s petition for involuntary psychiatric hospitalization was placed in continuance until 04/20/18 by the supervisor plating and point assembly at [facility], and his is acting as healthcare surrogate. Case d/w RN. Thank you very much for this consultation. Please call or page [phone] with questions during daylight hours. I will apprise Dr. Skinner of the case when he resumes seeing consults tomorrow. Problem Qualifiers (1) Dementia: Qualified Codes: G30.1 - Alzheimer's disease with late onset; F02.81 - Dementia in other diseases classified elsewhere with behavioral disturbance Mike Rincon MD April 05, 2018 12:48
--- NOTE | 2018-04-05 15:38 | PD.CARD.PN ---
Subjective Subjective Remarks Last night, patient mentioned chest pain to the nurse and so troponin was checked an elevated Currently denies CP/SOB Feels well Objective Medications Current Medications Medications (Trade) Dose Ordered Sig/Raymond Route Start Time Stop Time Status Last Admin (NS Flush) 2 ml UNSCH PRN IV FLUSH 04/04/18 20:30 (NS Flush) 2 ml BID IV FLUSH 04/04/18 21:00 04/05/18 08:24 (Tylenol) 650 mg Q4H PRN PO 04/04/18 20:30 (Narcan Inj) 0.4 mg UNSCH PRN IV PUSH 04/04/18 20:30 (Duoneb Neb) 1 ampule Q4HR NEB PRN NEB 04/04/18 23:45 (D50w (Vial) Inj) 50 ml UNSCH PRN IV PUSH 04/04/18 23:45 (Glucagon Inj) 1 mg UNSCH PRN OTHER 04/04/18 23:45 (NovoLOG SUPPLEMENTAL SCALE) 1 ACHS SLIDING SCALE SQ 04/05/18 08:00 04/05/18 12:25 (Depakote Dr) 500 mg BID PO 04/05/18 09:00 04/05/18 08:26 (Hydrodiuril) 25 mg DAILY PO 04/05/18 09:00 04/05/18 08:25 (Cozaar) 100 mg DAILY PO 04/05/18 09:00 04/05/18 08:25 (Imdur) 60 mg DAILY@07 PO 04/05/18 07:00 04/05/18 06:35 (Synthroid) 125 mcg DAILY@0700 PO 04/05/18 07:00 04/05/18 06:35 (Norvasc) 10 mg DAILY PO 04/05/18 09:00 04/05/18 08:25 (Neurontin) 200 mg BID PO 04/05/18 09:00 04/05/18 08:24 (Atarax) 50 mg Q6H PRN PO 04/05/18 00:00 (Milk Of Magnesia Liq) 30 ml Q6HR PRN PO 04/05/18 00:00 (Melatonin) 5 mg HS PRN PO 04/05/18 00:00 (Ecotrin Ec) 81 mg DAILY PO 04/05/18 09:00 04/05/18 08:25 (Abilify) 1 mg BID PO 04/05/18 21:00 UNV Vital Signs / I&O Vital Signs Date Time Temp Pulse Resp B/P (MAP) Pulse Ox O2 Delivery O2 Flow Rate FiO2 04/05/18 12:10 98.0 54 18 168/66 (100) 98 04/05/18 08:10 98.1 51 18 173/65 (101) 98 04/05/18 08:00 Room Air 04/05/18 03:55 97.9 52 16 150/76 (100) 100 04/05/18 00:00 97.1 51 16 122/68 (86) 96 04/05/18 00:00 Room Air 04/04/18 23:44 37 04/04/18 23:10 97.4 48 16 126/61 (82) 96 04/04/18 19:40 97.7 49 16 148/73 (98) 94 I/O 04/04/18 04/04/18 04/04/18 04/05/18 04/05/18 04/05/18 07:00 15:00 23:00 07:00 15:00 23:00 Intake Total 0 ml Balance 0 ml Intake Oral 0 ml # Voids 2 # Bowel Movements 0 Physical Exam GENERAL: NAD, AAOx0 SKIN: Warm and dry. HEAD: Atraumatic. Normocephalic. EYES: Pupils equal and round. No scleral icterus. No injection or drainage. ENT: No nasal bleeding or discharge. Mucous membranes pink and moist. NECK: Trachea midline. No JVD. CARDIOVASCULAR: Regular rate and rhythm. RESPIRATORY: No accessory muscle use. Clear to auscultation. Breath sounds equal bilaterally. GASTROINTESTINAL: Abdomen soft, non-tender, nondistended. Hepatic and splenic margins not palpable. MUSCULOSKELETAL: Extremities without clubbing, cyanosis, or edema. No obvious deformities. NEUROLOGICAL: Awake and alert. No obvious cranial nerve deficits. Motor grossly within normal limits. Five out of 5 muscle strength in the arms and legs. Normal speech. PSYCHIATRIC: Appropriate mood and affect; insight and judgment normal. Laboratory Laboratory Tests Test 04/05/18 04:21 White Blood Count 6.9 TH/MM3 Red Blood Count 4.96 MIL/MM3 Hemoglobin 14.3 GM/DL Hematocrit 42.5 % Mean Corpuscular Volume 85.7 FL Mean Corpuscular Hemoglobin 28.8 PG Mean Corpuscular Hemoglobin Concent 33.6 % Red Cell Distribution Width 13.3 % Platelet Count 206 TH/MM3 Mean Platelet Volume 9.8 FL Neutrophils (%) (Auto) 49.3 % Lymphocytes (%) (Auto) 39.6 % Monocytes (%) (Auto) 8.2 % Eosinophils (%) (Auto) 2.4 % Basophils (%) (Auto) 0.5 % Neutrophils # (Auto) 3.4 TH/MM3 Lymphocytes # (Auto) 2.7 TH/MM3 Monocytes # (Auto) 0.6 TH/MM3 Eosinophils # (Auto) 0.2 TH/MM3 Basophils # (Auto) 0.0 TH/MM3 CBC Comment DIFF FINAL Differential Comment Blood Urea Nitrogen 23 MG/DL Creatinine 1.09 MG/DL Random Glucose 99 MG/DL Calcium Level 9.2 MG/DL Sodium Level 138 MEQ/L Potassium Level 3.4 MEQ/L Chloride Level 97 MEQ/L Carbon Dioxide Level 31.2 MEQ/L Anion Gap 10 MEQ/L Estimat Glomerular Filtration Rate 65 ML/MIN Troponin I 0.55 NG/ML Valproic Acid (Depakene) Level 57 MCG/ML Assessment and Plan Problem List: (1) NSTEMI (non-ST elevated myocardial infarction) ICD Codes: I21.4 - Non-ST elevation (NSTEMI) myocardial infarction (2) Atrial fibrillation ICD Codes: I48.91 - Unspecified atrial fibrillation (3) DEMENTIA IN OTH DISEASES CLASSD ELSWHR W BEHAVIORAL DISTURB ICD Codes: F02.81 - DEMENTIA IN OTH DISEASES CLASSD ELSWHR W BEHAVIORAL DISTURB (4) Bradycardia ICD Codes: R00.1 - Bradycardia, unspecified (5) Coronary artery disease ICD Codes: I25.10 - Atherosclerotic heart disease of [place] coronary artery without angina pectoris (6) Shortness of breath ICD Codes: R06.02 - Shortness of breath (7) Debility ICD Codes: R53.81 - Other malaise (8) Hypertension ICD Codes: I10 - Essential (primary) hypertension (9) 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 ICD Codes: G30.9 - Alzheimer's disease, unspecified; F02.80 - Dementia in other diseases classified elsewhere without behavioral disturbance (10) Dementia ICD Codes: F03.90 - Unspecified dementia without behavioral disturbance Assessment and Plan 1) New on-set AFib No documented history previously Rates controlled Not an AC candidate 2) Elevated troponin Most likely insignificant Troponin most likely Type 2 Con't current regiment 3) Dementia per the primary Evaluation by palliative care, considering Hospice 4) No further cardio work up 5) History of falls Problem Qualifiers (1) Dementia: Qualified Codes: G30.1 - Alzheimer's disease with late onset; F02.81 - Dementia in other diseases classified elsewhere with behavioral disturbance Medhat Marquez DO April 05, 2018 15:38
[2018-04-05 16:34] VITALS: BP 152/68; PULSE 70; RESP 18; TEMP 97.9; O2SAT 98
[2018-04-05 20:00] VITALS: BP 140/61; PULSE 69; RESP 20; TEMP 97.7; O2SAT 94
[2018-04-05] MEDS: ARIPiprazole 2 MG TAB PO SCH (22:04)
[2018-04-06] VITALS: BP 141/67; PULSE 52; RESP 16; TEMP 98; O2SAT 96
[2018-04-06 03:45] VITALS: BP 138/68; PULSE 52; RESP 16; TEMP 97.3; O2SAT 96
[2018-04-06] MEDS: LEVOTHYROXINE SODIUM 125 MCG TAB PO SCH (06:33)
[2018-04-06] MEDS: ISOSORBIDE MONONITRATE 60 MG CR TAB (IMDUR) PO SCH (06:33)
[2018-04-06 08:00] VITALS: BP 139/69; PULSE 58; RESP 16; TEMP 97.2; O2SAT 98
[2018-04-06] MEDS: INSULIN ASPART SUPPLEMENTAL SCALE SQ SCH ×3 (08:00→17:00)
[2018-04-06] MEDS: DIVALPROEX DR 500 MG TABEC PO SCH (09:31)
[2018-04-06] MEDS: LOSARTAN 50 MG TAB PO SCH (09:32)
[2018-04-06] MEDS: SODIUM CHLORIDE 0.9% FLUSH 10 ML FLUSH IV FLUSH SCH (09:32)
[2018-04-06] MEDS: ARIPiprazole 2 MG TAB PO SCH (09:32)
[2018-04-06] MEDS: ASPIRIN EC 81 MG TABEC PO SCH (09:33)
[2018-04-06] MEDS: GABAPENTIN 100 MG CAP PO SCH (09:33)
[2018-04-06] MEDS: HYDROCHLOROTHIAZIDE 25 MG TAB PO SCH (09:33)
[2018-04-06 12:00] VITALS: BP 154/65; PULSE 63; RESP 16; TEMP 98.2; O2SAT 97
--- NOTE | 2018-04-06 12:55 | HHI.HCPN ---
Received call from [facility] that was at bedside. Going to be meeting with hospice today. indicated she wished for someone to come by to obtain copies of advanced directives. Met with . Obtained copies of Living Will, Health Care Surrogate, and Organ Donation. Copy placed in chart and copy faxed to HIM to be scanned into EMR. * Living will indicates if Mr. Harper was "in a permanent coma or if my doctor and another doctor agree that I have a terminal illness, and I am unable to communicate or make decisions, I do not want life-prolonging treatments already understand to be continued or new ones started" * Health care surrogate lists primary HCS as , Pia Harper and alternate as daughter Amara Briggs. * Organ donation indicates Mr. Harper wants to donate all organs and tissues. Hospice in to meet with patient and after my visit. Palliative care will continue to follow throughout hospitalization. Ellyn Thrasher, ELEVATOR PILOT April 06, 2018 12:55
--- NOTE | 2018-04-06 13:23 | PD.CARD.PN ---
Subjective Subjective Remarks Currently denies CP/SOB Feels well Objective Medications Current Medications Medications (Trade) Dose Ordered Sig/Raymond Route Start Time Stop Time Status Last Admin (NS Flush) 2 ml UNSCH PRN IV FLUSH 04/04/18 20:30 (NS Flush) 2 ml BID IV FLUSH 04/04/18 21:00 04/06/18 09:32 (Tylenol) 650 mg Q4H PRN PO 04/04/18 20:30 (Narcan Inj) 0.4 mg UNSCH PRN IV PUSH 04/04/18 20:30 (Duoneb Neb) 1 ampule Q4HR NEB PRN NEB 04/04/18 23:45 (D50w (Vial) Inj) 50 ml UNSCH PRN IV PUSH 04/04/18 23:45 (Glucagon Inj) 1 mg UNSCH PRN OTHER 04/04/18 23:45 (NovoLOG SUPPLEMENTAL SCALE) 1 ACHS SLIDING SCALE SQ 04/05/18 08:00 04/06/18 12:27 (Depakote Dr) 500 mg BID PO 04/05/18 09:00 04/06/18 09:31 (Hydrodiuril) 25 mg DAILY PO 04/05/18 09:00 04/06/18 09:33 (Cozaar) 100 mg DAILY PO 04/05/18 09:00 04/06/18 09:32 (Imdur) 60 mg DAILY@07 PO 04/05/18 07:00 04/06/18 06:33 (Synthroid) 125 mcg DAILY@0700 PO 04/05/18 07:00 04/06/18 06:33 (Norvasc) 10 mg DAILY PO 04/05/18 09:00 04/06/18 09:33 (Neurontin) 200 mg BID PO 04/05/18 09:00 04/06/18 09:33 (Atarax) 50 mg Q6H PRN PO 04/05/18 00:00 (Milk Of Magnesia Liq) 30 ml Q6HR PRN PO 04/05/18 00:00 (Melatonin) 5 mg HS PRN PO 04/05/18 00:00 04/05/18 22:04 (Ecotrin Ec) 81 mg DAILY PO 04/05/18 09:00 04/06/18 09:33 (Abilify) 1 mg BID PO 04/05/18 21:00 04/06/18 09:32 Vital Signs / I&O Vital Signs Date Time Temp Pulse Resp B/P (MAP) Pulse Ox O2 Delivery O2 Flow Rate FiO2 04/06/18 08:00 97.2 58 16 139/69 (92) 98 04/06/18 08:00 Room Air 04/06/18 03:45 97.3 52 16 138/68 (91) 96 04/06/18 00:00 98.0 52 16 141/67 (91) 96 04/05/18 20:00 97.7 69 20 140/61 (87) 94 04/05/18 20:00 Room Air 04/05/18 16:34 97.9 70 18 152/68 (96) 98 I/O 04/05/18 04/05/18 04/05/18 04/06/18 04/06/18 04/06/18 07:00 15:00 23:00 07:00 15:00 23:00 Intake Total 0 ml 0 ml Output Total 0 ml Balance 0 ml 0 ml Intake Oral 0 ml 0 ml Output Urine Total 0 ml # Voids 2 3 # Bowel Movements 0 0 Physical Exam GENERAL: NAD, AAOx0 SKIN: Warm and dry. HEAD: Atraumatic. Normocephalic. EYES: Pupils equal and round. No scleral icterus. No injection or drainage. ENT: No nasal bleeding or discharge. Mucous membranes pink and moist. NECK: Trachea midline. No JVD. CARDIOVASCULAR: Regular rate and rhythm. RESPIRATORY: No accessory muscle use. Clear to auscultation. Breath sounds equal bilaterally. GASTROINTESTINAL: Abdomen soft, non-tender, nondistended. Hepatic and splenic margins not palpable. MUSCULOSKELETAL: Extremities without clubbing, cyanosis, or edema. No obvious deformities. NEUROLOGICAL: Awake and alert. No obvious cranial nerve deficits. Motor grossly within normal limits. Five out of 5 muscle strength in the arms and legs. Normal speech. PSYCHIATRIC: Appropriate mood and affect; insight and judgment normal. Assessment and Plan Problem List: (1) NSTEMI (non-ST elevated myocardial infarction) ICD Codes: I21.4 - Non-ST elevation (NSTEMI) myocardial infarction (2) Atrial fibrillation ICD Codes: I48.91 - Unspecified atrial fibrillation (3) DEMENTIA IN OTH DISEASES CLASSD ELSWHR W BEHAVIORAL DISTURB ICD Codes: F02.81 - DEMENTIA IN OTH DISEASES CLASSD ELSWHR W BEHAVIORAL DISTURB (4) Bradycardia ICD Codes: R00.1 - Bradycardia, unspecified (5) Coronary artery disease ICD Codes: I25.10 - Atherosclerotic heart disease of [place] coronary artery without angina pectoris (6) Shortness of breath ICD Codes: R06.02 - Shortness of breath (7) Debility ICD Codes: R53.81 - Other malaise (8) Hypertension ICD Codes: I10 - Essential (primary) hypertension (9) 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 ICD Codes: G30.9 - Alzheimer's disease, unspecified; F02.80 - Dementia in other diseases classified elsewhere without behavioral disturbance (10) Dementia ICD Codes: F03.90 - Unspecified dementia without behavioral disturbance Assessment and Plan 1) New on-set AFib No documented history previously Rates controlled Not an AC candidate 2) Elevated troponin Most likely insignificant, patient asymptomatic Troponin most likely Type 2 Con't current regiment 3) Dementia per the primary Evaluation by palliative care, appears to be going to Hospice, will see PRN, call with questions 4) No further cardio work up 5) History of falls Problem Qualifiers (1) Dementia: Qualified Codes: G30.1 - Alzheimer's disease with late onset; F02.81 - Dementia in other diseases classified elsewhere with behavioral disturbance Medhat Marquez DO April 06, 2018 13:23
[2018-04-06 16:00] VITALS: BP 146/80; PULSE 81; RESP 16; TEMP 97.5; O2SAT 97
--- NOTE | 2018-04-06 16:26 | HHI.PR ---
Subjective Remarks No overnight events, no complaints, heart rate controlled. Objective Vitals Vital Signs Date Time Temp Pulse Resp B/P (MAP) Pulse Ox O2 Delivery O2 Flow Rate FiO2 04/06/18 12:00 98.2 63 16 154/65 (94) 97 04/06/18 08:00 97.2 58 16 139/69 (92) 98 04/06/18 08:00 Room Air 04/06/18 03:45 97.3 52 16 138/68 (91) 96 04/06/18 00:00 98.0 52 16 141/67 (91) 96 04/05/18 20:00 97.7 69 20 140/61 (87) 94 04/05/18 20:00 Room Air 04/05/18 16:34 97.9 70 18 152/68 (96) 98 I/O 04/05/18 04/05/18 04/05/18 04/06/18 04/06/18 04/06/18 07:00 15:00 23:00 07:00 15:00 23:00 Intake Total 0 ml 0 ml Output Total 0 ml Balance 0 ml 0 ml Intake Oral 0 ml 0 ml Output Urine Total 0 ml # Voids 2 3 # Bowel Movements 0 0 Result Diagram: 04/05/18 0421 04/05/18 042 Objective Remarks GENERAL: This is a well-nourished, well-developed patient, in no apparent distress. CARDIOVASCULAR: bradycardic, regular rhythm. RESPIRATORY: Clear to auscultation. Breath sounds equal bilaterally. No wheezes , rales, or rhonchi. GASTROINTESTINAL: Abdomen soft, non-tender, nondistended. Normal, active bowel sounds MUSCULOSKELETAL: Extremities without clubbing, cyanosis, or edema. NEURO: awake and alert, oriented to person and place but not to time. A/P Problem List: (1) NSTEMI (non-ST elevated myocardial infarction) ICD Code: I21.4 - Non-ST elevation (NSTEMI) myocardial infarction (2) Atrial fibrillation ICD Code: I48.91 - Unspecified atrial fibrillation (3) Bradycardia ICD Code: R00.1 - Bradycardia, unspecified (4) ALZHEIMER'S DISEASE WITH LATE ONSET ICD Code: G30.1 - ALZHEIMER'S DISEASE WITH LATE ONSET (5) DEMENTIA IN OTH DISEASES CLASSD ELSWHR W BEHAVIORAL DISTURB ICD Code: F02.81 - DEMENTIA IN OTH DISEASES CLASSD ELSWHR W BEHAVIORAL DISTURB Assessment and Plan Atrial fibrillation, possibly new onset, bradycardic rate elevated troponin. - patient was seen by Dr. Marquez, bellows assembler, in psychiatric unit - assistance appreciated - rate is bradycardic - patient has DNR code status including ACLS drugs, patient accepted by hospice. Psychotropic medications on hold. Continue aspirin. Not a good candidate for anticoagulation per cardiology. Discussed with Dr. Marquez. No further workup per cardiology. Resumed all prior medications, psychotropic medications per psychiatry. Patient is still by corrected. Discharge to psych. DVT prophylaxis - patient a poor candidate for chemoprophylaxis due to falls - SCDs/TEDs Discharge Planning Medically clear for discharge Discharge patient to home Condition on discharge: Improved Regular Diet as tolerated Ad Shayna activity Rx written: Follow-up with primary care physician Ana Paula Sr MD April 06, 2018 16:26
== END 2018-04-06 19:45 | DRG 281 ==
LOC: N04A 20:15
PROVIDERS: ADMIT Family Medicine; ATTEND Family Medicine
DX: I21.4 Non-ST elevation (NSTEMI) myocardial infarction (principal); F02.81 Dementia in other diseases classified elsewhere, unspecified severity, with behavioral disturbance; R00.1 Bradycardia, unspecified; G30.1 Alzheimer's disease with late onset; E11.51 Type 2 diabetes mellitus with diabetic peripheral angiopathy without gangrene; I48.91 Unspecified atrial fibrillation; I25.10 Atherosclerotic heart disease of native coronary artery without angina pectoris; I10 Essential (primary) hypertension; E03.9 Hypothyroidism, unspecified; R26.81 Unsteadiness on feet; R53.81 Other malaise; F32.9 Major depressive disorder, single episode, unspecified; Z51.5 Encounter for palliative care; Z86.74 Personal history of sudden cardiac arrest; Z95.1 Presence of aortocoronary bypass graft; Z87.891 Personal history of nicotine dependence; Z85.46 Personal history of malignant neoplasm of prostate; Z91.81 History of falling; Z83.3 Family history of diabetes mellitus; Z82.49 Family history of ischemic heart disease and other diseases of the circulatory system; Z79.899 Other long term (current) drug therapy; Z66 Do not resuscitate
CPT/HCPCS: 80048; 80164; 82948; 84484; 85025; J1815

== ENCOUNTER 2018-04-06 19:55 | Inpatient (IN) | payer MEDICARE ==
[~2018-04-06] VITALS: Ht 185.4 cm; Wt 86.0 kg
[2018-04-06 19:55] VITALS: BP 140/72; PULSE 52; RESP 18; TEMP 97.5; O2SAT 98
[2018-04-06] MEDS ORDERED: ACETAMINOPHEN 325 MG TAB PO PRN (20:45)
[2018-04-06] MEDS ORDERED: ALUMINUM/MAGNESIUM/SIMETH 30 ML CUP PO PRN (20:45)
[2018-04-06] MEDS ORDERED: LORazepam 0.5 MG TAB PO PRN (20:45)
[2018-04-06] MEDS ORDERED: LORazepam 1 MG TAB PO PRN (20:45)
[2018-04-06] MEDS ORDERED: LORazepam 2 MG/ML VIAL IM PRN ×2 (20:45)
[2018-04-06] MEDS ORDERED: MAGNESIUM HYDROXIDE SUSP 30 ML CUP PO PRN (20:45)
[2018-04-06] MEDS ORDERED: MELATONIN 6 MG PO SCH (21:00)
[2018-04-06] MEDS: MELATONIN 5 MG TAB PO SCH (21:15)
[2018-04-06] MEDS: DIVALPROEX SODIUM SPRINKLES 125 MG CAP PO SCH (22:40)
[2018-04-06] MEDS: GABAPENTIN 100 MG CAP PO SCH (22:40)
[2018-04-07] MEDS: LEVOTHYROXINE SODIUM 125 MCG TAB PO SCH (05:21)
[2018-04-07 07:49] LABS: BICARBONATE 28.7 MEQ/L (21.0-32.0); BLOOD UREA NITROGEN 22 MG/DL (7-18); CALCIUM 8.7 MG/DL (8.5-10.1); CHLORIDE 100 MEQ/L (98-107); CHOLESTEROL 192 MG/DL (120-200); CHOLESTEROL/ HDL RATIO 5.78 RATIO; CREATININE 1.15 MG/DL (0.60-1.30); GLOMERULAR FILTRATION RATE 61 ML/MIN (>89); GLUCOSE,RANDOM 104 MG/DL (74-106); HDL CHOLESTEROL 33.2 MG/DL (40.0-60.0); LDL CHOLESTEROL 120 MG/DL (0-99); SODIUM (NA) 137 MEQ/L (136-145); TRIGLYCERIDES 192 MG/DL (42-150)
[2018-04-07] MEDS: LOSARTAN 50 MG TAB PO SCH (09:00)
[2018-04-07] MEDS: ISOSORBIDE MONONITRATE 60 MG CR TAB (IMDUR) PO SCH (09:00)
[2018-04-07] MEDS: DIVALPROEX SODIUM SPRINKLES 125 MG CAP PO SCH ×2 (09:00→20:26)
[2018-04-07] MEDS: NICOTINE 21 MG/24 HR PATCH T-DERMAL SCH (09:00)
[2018-04-07] MEDS: ARIPiprazole 5 MG TAB PO SCH (09:00)
[2018-04-07] MEDS: GABAPENTIN 100 MG CAP PO SCH ×2 (09:00→20:24)
[2018-04-07] MEDS: ASPIRIN EC 81 MG TABEC PO SCH (09:00)
[2018-04-07] MEDS ORDERED: hydrOXYzine HCL 50 MG TAB PO PRN (12:00)
[2018-04-07] MEDS ORDERED: ACETAMINOPHEN 325 MG TAB PO PRN (12:00)
--- NOTE | 2018-04-07 12:00 | HHI.PYPN ---
Subjective Remarks Patient initially admitted to the psychiatric service on 03/23 through 04/04 visit [id number]. She developed atrial fibrillation with other cardiac issues necessitating a transfer to the medicine floor where he was hospitalized 04/04 through 04/06 visit [id number]. Patient was seen in consultation by Dr. Rincon on 04/05. Patient transferred back to this unit on 04/06 after being medically cleared. I have done the med template orders. And reviewed the med reconciliation. Patient seen by me in his room with nurse Moni, he is alert continues diffusely disorganized and confused in all 4 spheres. He is a little bit irritable today but overall cooperative with medications and nurses interventions. For now continue treatment Review of Systems Except as stated in HPI: all other systems reviewed are Neg Mental Status Examination Appearance: Appropriate Consciousness: Alert Orientation: Person Motor Activity: Normal gait Speech: Unremarkable Language: Adequate Fund of Knowledge: Adequate Attention and Concentration: Easily Distracted Memory: Impaired Mood: Other (Euthymic to somewhat dysphoric and irritable) Affect: Other (Decreased range and intensity) Thought Process & Associations: Other (Somewhat disorganized) Thought Content: Other (Somewhat disorganized) Hallucination Type: None Delusion Type: None Suicidal Ideation: No Suicidal Plan: No Suicidal Intention: No Homicidal Ideation: No Homicidal Plan: No Homicidal Intention: No Insight: Poor Judgment: Poor Results Labs Test 04/07/18 06:21 Blood Urea Nitrogen 22 MG/DL Creatinine 1.15 MG/DL Random Glucose 104 MG/DL Calcium Level 8.7 MG/DL Sodium Level 137 MEQ/L Potassium Level 5.5 MEQ/L Chloride Level 100 MEQ/L Carbon Dioxide Level 28.7 MEQ/L Anion Gap 8 MEQ/L Estimat Glomerular Filtration Rate 61 ML/MIN Triglycerides Level 192 MG/DL Cholesterol Level 192 MG/DL LDL Cholesterol 120 MG/DL HDL Cholesterol 33.2 MG/DL Cholesterol/HDL Ratio 5.78 RATIO Vitals/IOs Vital Signs Date Time Temp Pulse Resp B/P (MAP) Pulse Ox O2 Delivery O2 Flow Rate FiO2 04/06/18 19:55 97.5 52 18 140/72 (94) 98 Assessment & Plan Problem List: (1) DEMENTIA IN OTH DISEASES CLASSD ELSWHR W BEHAVIORAL DISTURB ICD Codes: F02.81 - DEMENTIA IN OTH DISEASES CLASSD ELSWHR W BEHAVIORAL DISTURB (2) ALZHEIMER'S DISEASE WITH LATE ONSET ICD Codes: G30.1 - ALZHEIMER'S DISEASE WITH LATE ONSET Assessment & Plan Estimated LOS: days patient continues demented and confused, at times a little bit irritable but redirectable. Overall complaint medication Justification for Cont. Inpt. At this time patient would decompensate a place to a lower level of care Discharge Planning To be determined Request HC Surrog/Guard Advoc?: Yes Lamont Frank MD Apr 07, 2018 12:00
--- NOTE | 2018-04-07 15:45 | PD.CONS ---
HPI Service [facility] Hospitalists Consult Requested By Dr. Skinner Reason for Consult Medical management Primary Care Physician Unknown Diagnoses: History of Present Illness Written by Rebecca Magaña, acting as scribe for Dr. Dumont on 04/07/18 at 15: 39. 82-year-old male with history of dementia, CAD s/p CABG 17 years ago, AV shunt, HTN, DM, PEA arrest 2 in December 2017, and newly diagnosed atrial fibrillation , admitted to inpatient psych for dementia with behavioral disturbances. Hospitalist consulted for medical management. The patient has advanced dementia and is not able to give any reliable medical history. He denies any medical problems, surgeries, or any medical complaints including no headache, lightheadedness, dizziness, chest pain, palpitations, shortness of breath, or abdominal complaints. EMR reviewed, patient was initially admitted to inpatient psych 03/18/18 to 04/04/18 when he was transferred to the medical floor for elevated troponin, found to have new onset atrial fibrillation with slow ventricular response. He was evaluated by cardiology, not a candidate for anticoagulation or any cardiac intervention, and cleared from cardiology standpoint. Patient is DNR, was evaluated by palliative care and his is considering hospice. Patient was then medically cleared and discharged back to inpatient psych. No new events reported. Review of Systems ROS Limitations: Poor Historian Except as stated in HPI: all other systems reviewed are Neg Past Family Social History Allergies: Coded Allergies: codeine (Verified Allergy, Unknown, 03/18/18) donepezil (Verified Allergy, Unknown, 03/18/18) Past Medical History dementia CAD s/p CABG 17 years ago AV shunt HTN DM PEA arrest 2 in December 2017 atrial fibrillation Hypothyroidism Past Surgical History 4-vessel CABG 17 years ago Reported Medications Senna Lax (Sennosides) 8.6 Mg Tab 17.2 Mg PO HS Melatonin 3 Mg Tab 6 Mg PO HS Hydrochlorothiazide 25 Mg Tab 25 Mg PO DAILY Vitamin B-12 (Cyanocobalamin) 500 Mcg Tab 1,000 Mcg PO DAILY Aspirin Adult Low Strength (Aspirin) 81 Mg Tabdr 81 Mg PO DAILY Colace (Docusate Sodium) 100 Mg Capsule 100 Mg PO BID Trazodone (Trazodone HCl) 50 Mg Tab 25 Mg PO HS Seroquel (Quetiapine Fumarate) 25 Mg Tab 25 Mg PO HS Norvasc (Amlodipine Besylate) 10 Mg Tab 10 Mg PO HS Isosorbide Mononitrate ER (Isosorbide Mononitrate) 60 Mg Tab 60 Mg PO DAILY Losartan (Losartan Potassium) 100 Mg Tab 100 Mg PO DAILY Levothyroxine (Levothyroxine Sodium) 125 Mcg Tab 125 Mcg PO DAILY Gabapentin 100 Mg Cap 200 Mg PO BID Depakote DR (Divalproex Sodium) 125 Mg Tabdr 375 Mg PO BID Active Ordered Medications Current Medications Medications (Trade) Dose Ordered Sig/Raymond Route Start Time Stop Time Status Last Admin (Norvasc) 10 mg HS PO 04/06/18 21:00 (Ecotrin Ec) 81 mg DAILY PO 04/07/18 09:00 04/07/18 09:00 (Depakote Sprinkles) 375 mg BID PO 04/06/18 21:00 04/07/18 09:00 (Neurontin) 200 mg BID PO 04/06/18 21:00 04/07/18 09:00 (Imdur) 60 mg DAILY PO 04/07/18 09:00 (Synthroid) 125 mcg DAILY@0600 PO 04/07/18 06:00 04/07/18 05:21 (Cozaar) 100 mg DAILY PO 04/07/18 09:00 04/07/18 09:00 (Tylenol) 650 mg Q4H PRN PO 04/06/18 20:45 (Milk Of Magnesia Liq) 30 ml DAILY PRN PO 04/06/18 20:45 (Mag-Al Plus Susp Liq) 30 ml Q6H PRN PO 04/06/18 20:45 (Habitrol 21 Mg Patch.24 Hr) 1 patch DAILY T-DERMAL 04/07/18 09:00 (Abilify) 5 mg DAILY PO 04/07/18 09:00 04/07/18 09:00 (Melatonin) 5 mg HS PO 04/06/18 21:15 Miscellaneous Information 1 HS T-DERMAL 04/07/18 21:00 (Benadryl) 50 mg HS PRN PO 04/07/18 21:00 (Atarax) 50 mg Q6H PRN PO 04/07/18 12:00 (Desyrel) 25 mg HS PO 04/07/18 21:00 (Pill Splitter) 1 ea UNSCH PRN OTHER 04/07/18 12:30 Family History Patient unable to recall family history Social History Obtained from EMR: Remote history of tobacco use No alcohol use No illicit drug use [facility] resident Physical Exam Vital Signs Vital Signs Date Time Temp Pulse Resp B/P (MAP) Pulse Ox O2 Delivery O2 Flow Rate FiO2 04/06/18 19:55 97.5 52 18 140/72 (94) 98 Physical Exam GENERAL: Well-nourished, well-developed pleasantly confused elderly male patient in [facility]. Sitting upright in chair in the day room. SKIN: Warm and dry. No rash. HEAD: Normocephalic. Atraumatic. EYES: Pupils equal and round. No scleral icterus. No injection or drainage. ENT: No nasal bleeding or discharge. Mucous membranes pink and moist. NECK: Supple. Trachea midline. CARDIOVASCULAR: Irregular bradycardic rhythm. No murmur appreciated. RESPIRATORY: No accessory muscle use. Clear to auscultation. Breath sounds equal bilaterally. GASTROINTESTINAL: Abdomen soft, non-tender, nondistended. Normoactive bowel sounds x4. MUSCULOSKELETAL: No obvious deformities. Extremities without clubbing, cyanosis , or edema. NEUROLOGICAL: Awake and alert. No obvious cranial nerve deficits. Motor grossly within normal limits. Normal speech. PSYCHIATRIC: insight and judgment limited. Laboratory Laboratory Tests Test 04/07/18 06:21 Blood Urea Nitrogen 22 Creatinine 1.15 Random Glucose 104 Calcium Level 8.7 Sodium Level 137 Potassium Level 5.5 Chloride Level 100 Carbon Dioxide Level 28.7 Anion Gap 8 Estimat Glomerular Filtration Rate 61 Triglycerides Level 192 Cholesterol Level 192 LDL Cholesterol 120 HDL Cholesterol 33.2 Cholesterol/HDL Ratio 5.78 Result Diagram: 04/07/18 0621 Assessment and Plan Assessment and Plan 82-year-old male with history of dementia, CAD s/p CABG 17 years ago, AV shunt, HTN, DM, PEA arrest 2 in December 2017, and newly diagnosed atrial fibrillation , admitted to inpatient psych for dementia with behavioral disturbances. Hospitalist consulted for medical management. Dementia with behavioral disturbances -Continue management per psychiatry -Patient is DNR, has selected hospice services upon discharge New Onset Atrial fibrillation with SVR: diagnosed 04/04 s/p admission to [facility]. -Evaluated by cardiology, continue aspirin 81mg daily, not a candidate for any further anticoagulation or cardiac intervention -avoid rate controlling medications with slow ventricular response -stable CAD: s/p CABG 17years ago. Chronic. -no complaints of chest pain -continue patient's aspirin and imdur Hypertension: chronic, BP well controlled -continue patient's norvasc 10mg daily, losartan 100mg daily, HCTZ 25mg daily -Monitor BP, adjust antihypertensives as needed Hypothyroidism: chronic -continue patient's levothyroxine DVT prophylaxis: patient is ambulatory in psych unit; patient poor candidate for chemoprophylaxis due to falls This note was transcribed by larisa Magaña. I, Dr. Benton Dumont personally performed the history, physical exam, and medical decision making; and confirmed the accuracy of the information in the transcribed note. Authenticated by Dr. Benton Dumont on 04/07/18 at 15:48. Code Status DNR Discussed Condition With Patient Rebecca Magaña PA-C Apr 07, 2018 15:45 Benton Dumont MD Apr 07, 2018 15:49
[2018-04-07 17:06] LABS: HEMOGLOBIN A1C 7.1 % (4.3-6.0)
[2018-04-07 17:32] VITALS: BP 149/65; PULSE 59; RESP 16; TEMP 98.1; O2SAT 96
[2018-04-07] MEDS: MELATONIN 5 MG TAB PO SCH (20:24)
[2018-04-07] MEDS: traZODone HCL 50 MG TAB PO SCH (20:25)
[2018-04-07] MEDS: REMOVE OLD PATCH T-DERMAL SCH (21:00)
[2018-04-07] MEDS ORDERED: diphenhydrAMINE HCL 50 MG CAP PO PRN (21:00)
[2018-04-08 06:32] VITALS: BP 123/57; PULSE 50; RESP 17; TEMP 98; O2SAT 97
[2018-04-08] MEDS: NICOTINE 21 MG/24 HR PATCH T-DERMAL SCH (09:00)
[2018-04-08] MEDS: ISOSORBIDE MONONITRATE 60 MG CR TAB (IMDUR) PO SCH (10:03)
[2018-04-08] MEDS: ASPIRIN EC 81 MG TABEC PO SCH (10:03)
[2018-04-08] MEDS: GABAPENTIN 100 MG CAP PO SCH ×2 (10:04→21:11)
[2018-04-08] MEDS: DIVALPROEX SODIUM SPRINKLES 125 MG CAP PO SCH ×2 (10:04→21:11)
[2018-04-08] MEDS: LOSARTAN 50 MG TAB PO SCH (10:04)
[2018-04-08] MEDS: ARIPiprazole 5 MG TAB PO SCH (10:05)
[2018-04-08 10:15] LABS: BICARBONATE 29.4 MEQ/L (21.0-32.0); BLOOD UREA NITROGEN 21 MG/DL (7-18); CALCIUM 8.7 MG/DL (8.5-10.1); CHLORIDE 98 MEQ/L (98-107); CHOLESTEROL 203 MG/DL (120-200); CHOLESTEROL/ HDL RATIO 5.38 RATIO; CREATININE 1.12 MG/DL (0.60-1.30); GLOMERULAR FILTRATION RATE 63 ML/MIN (>89); GLUCOSE,RANDOM 148 MG/DL (74-106); HDL CHOLESTEROL 37.7 MG/DL (40.0-60.0); LDL CHOLESTEROL 133 MG/DL (0-99); SODIUM (NA) 137 MEQ/L (136-145); TRIGLYCERIDES 162 MG/DL (42-150)
--- NOTE | 2018-04-08 15:30 | HHI.PR ---
Subjective Remarks Follow up for afib, CAD, HTN. The patient is seen in the day room. He has no medical complaints including no headache, cough, chest pain, shortness of breath , or abdominal complaints. Vital signs reviewed and stable. Discussed with RN, no acute concerns. Objective Vitals Vital Signs Date Time Temp Pulse Resp B/P (MAP) Pulse Ox O2 Delivery O2 Flow Rate FiO2 04/08/18 06:32 98.0 50 17 123/57 (79) 97 04/07/18 17:32 98.1 59 16 149/65 (93) 96 I/O 04/07/18 04/07/18 04/07/18 04/08/18 04/08/18 04/08/18 07:00 15:00 23:00 07:00 15:00 23:00 Intake Total 240 ml 120 ml Balance 240 ml 120 ml Intake Oral 240 ml 120 ml Result Diagram: 04/08/18 09 Objective Remarks GENERAL: Well-nourished, well-developed pleasantly demented elderly male patient in [facility]. SKIN: Warm and dry. No rash. HEENT: Normocephalic. Atraumatic. Pupils equal and round. Mucous membranes pink and moist. CARDIOVASCULAR: Irregular rhythm, bradycardic rate. No murmur appreciated. RESPIRATORY: No accessory muscle use. Clear to auscultation. Breath sounds equal bilaterally. GASTROINTESTINAL: Abdomen soft, non-tender, nondistended. Normoactive bowel sounds x4. MUSCULOSKELETAL: No obvious deformities. Extremities without clubbing, cyanosis , or edema. NEUROLOGICAL: Awake and alert. No obvious cranial nerve deficits. Motor grossly within normal limits. Moving all extremities spontaneously. Normal speech. PSYCHIATRIC: Appropriate mood and affect; insight and judgment limited. Medications and IVs Current Medications Medications (Trade) Dose Ordered Sig/Raymond Route Start Time Stop Time Status Last Admin (Norvasc) 10 mg HS PO 04/06/18 21:00 04/07/18 20:25 (Ecotrin Ec) 81 mg DAILY PO 04/07/18 09:00 04/08/18 10:03 (Depakote Sprinkles) 375 mg BID PO 04/06/18 21:00 04/08/18 10:04 (Neurontin) 200 mg BID PO 04/06/18 21:00 04/08/18 10:04 (Imdur) 60 mg DAILY PO 04/07/18 09:00 04/08/18 10:03 (Synthroid) 125 mcg DAILY@0600 PO 04/07/18 06:00 04/07/18 05:21 (Cozaar) 100 mg DAILY PO 04/07/18 09:00 04/08/18 10:04 (Tylenol) 650 mg Q4H PRN PO 04/06/18 20:45 (Milk Of Magnesia Liq) 30 ml DAILY PRN PO 04/06/18 20:45 (Mag-Al Plus Susp Liq) 30 ml Q6H PRN PO 04/06/18 20:45 (Habitrol 21 Mg Patch.24 Hr) 1 patch DAILY T-DERMAL 04/07/18 09:00 (Abilify) 5 mg DAILY PO 04/07/18 09:00 04/08/18 10:05 (Melatonin) 5 mg HS PO 04/06/18 21:15 04/07/18 20:24 Miscellaneous Information 1 HS T-DERMAL 04/07/18 21:00 (Benadryl) 50 mg HS PRN PO 04/07/18 21:00 (Atarax) 50 mg Q6H PRN PO 04/07/18 12:00 (Desyrel) 25 mg HS PO 04/07/18 21:00 04/07/18 20:25 (Pill Splitter) 1 ea UNSCH PRN OTHER 04/07/18 12:30 A/P Assessment and Plan 82-year-old male with history of dementia, CAD s/p CABG 17 years ago, AV shunt, HTN, DM, PEA arrest 2 in December 2017, and newly diagnosed atrial fibrillation , admitted to inpatient psych for dementia with behavioral disturbances. Hospitalist consulted for medical management. Dementia with behavioral disturbances -Continue management per psychiatry -Patient is DNR, has selected hospice services upon discharge New Onset Atrial fibrillation with SVR: diagnosed 04/04 s/p admission to [facility]. -Evaluated by cardiology, continue aspirin 81mg daily, not a candidate for any further anticoagulation or cardiac intervention -avoid rate controlling medications with slow ventricular response -stable CAD: s/p CABG 17years ago. Chronic. -no complaints of chest pain -continue patient's aspirin and imdur Hypertension: chronic, BP well controlled -continue patient's norvasc 10mg daily, losartan 100mg daily, HCTZ 25mg daily -Monitor BP, adjust antihypertensives as needed Hypothyroidism: chronic -continue patient's levothyroxine DVT prophylaxis: patient is ambulatory in psych unit; poor candidate for chemoprophylaxis due to falls Discharge Planning Patient is medically stable at this time, will sign off. Please reconsult hospitalists as needed if any new issues arise. Thank you very much for this consultation. Rebecca Magaña PA-C Apr 08, 2018 3:29 pm
--- NOTE | 2018-04-08 17:14 | HHI.PYPN ---
Subjective Remarks Patient was seen and case discussed with nursing. Patient is pleasant but perseverative on various things throughout the interview. Is compliant with his medications skin is quite dry and I recommended an ointment. No behavioral outbursts. Denies auditory or visual hallucinations. Denies depressed mood. Denies suicidal or homicidal ideation intent or plan Mental Status Examination Appearance: Appropriate Consciousness: Alert Orientation: Person Motor Activity: Normal gait Speech: Unremarkable Language: Adequate Fund of Knowledge: Adequate Attention and Concentration: Easily Distracted Memory: Impaired Mood: Other (Euthymic to somewhat dysphoric and irritable) Affect: Other (Decreased range and intensity) Thought Process & Associations: Other (Somewhat disorganized) Thought Content: Other (Somewhat disorganized) Hallucination Type: None Delusion Type: None Suicidal Ideation: No Suicidal Plan: No Suicidal Intention: No Homicidal Ideation: No Homicidal Plan: No Homicidal Intention: No Insight: Poor Judgment: Poor Results Labs Test 04/08/18 09:07 Blood Urea Nitrogen 21 MG/DL Creatinine 1.12 MG/DL Random Glucose 148 MG/DL Calcium Level 8.7 MG/DL Sodium Level 137 MEQ/L Potassium Level 3.6 MEQ/L Chloride Level 98 MEQ/L Carbon Dioxide Level 29.4 MEQ/L Anion Gap 10 MEQ/L Estimat Glomerular Filtration Rate 63 ML/MIN Triglycerides Level 162 MG/DL Cholesterol Level 203 MG/DL LDL Cholesterol 133 MG/DL HDL Cholesterol 37.7 MG/DL Cholesterol/HDL Ratio 5.38 RATIO Vitals/IOs Vital Signs Date Time Temp Pulse Resp B/P (MAP) Pulse Ox O2 Delivery O2 Flow Rate FiO2 04/08/18 06:32 98.0 50 17 123/57 (79) 97 Intake and Output 04/08/18 04/08/18 04/09/18 08:00 16:00 00:00 Intake Total 120 ml Balance 120 ml Assessment & Plan Problem List: (1) DEMENTIA IN OTH DISEASES CLASSD ELSWHR W BEHAVIORAL DISTURB ICD Codes: F02.81 - DEMENTIA IN OTH DISEASES CLASSD ELSWHR W BEHAVIORAL DISTURB (2) ALZHEIMER'S DISEASE WITH LATE ONSET ICD Codes: G30.1 - ALZHEIMER'S DISEASE WITH LATE ONSET Assessment & Plan Continue current treatment plan Justification for Cont. Inpt. Patient would decompensate in a less restrictive setting Request HC Surrog/Guard Advoc?: Yes Jalen Clemente DO Apr 08, 2018 17:14
[2018-04-08 17:54] VITALS: BP 143/79; PULSE 64; RESP 20; TEMP 98.4; O2SAT 99
[2018-04-08] MEDS: REMOVE OLD PATCH T-DERMAL SCH (21:10)
[2018-04-08] MEDS: MELATONIN 5 MG TAB PO SCH (21:11)
[2018-04-08] MEDS: traZODone HCL 50 MG TAB PO SCH (21:11)
[2018-04-09] MEDS: LEVOTHYROXINE SODIUM 125 MCG TAB PO SCH (06:26)
[2018-04-09 06:59] VITALS: BP 122/58; PULSE 41; RESP 16; TEMP 98; O2SAT 95
[2018-04-09] MEDS: NICOTINE 21 MG/24 HR PATCH T-DERMAL SCH (09:00)
--- NOTE | 2018-04-09 12:15 | HHI.PYPN ---
Subjective Remarks Patient was seen and case discussed with nursing. Patient is alert and oriented 1. He is eating and sleeping well. He is confused about his stay and there is evidence of memory loss. His behaving well on the unit. No ETO's were needed. Denies suicidal or homicidal ideation intent or plan. Tolerating medications well Mental Status Examination Appearance: Appropriate Consciousness: Alert Orientation: Person Motor Activity: Normal gait Speech: Unremarkable Language: Adequate Fund of Knowledge: Adequate Attention and Concentration: Easily Distracted Memory: Impaired Mood: Other (Euthymic to somewhat dysphoric and irritable) Affect: Other (Decreased range and intensity) Thought Process & Associations: Other (Somewhat disorganized) Thought Content: Other (Somewhat disorganized) Hallucination Type: None Delusion Type: None Suicidal Ideation: No Suicidal Plan: No Suicidal Intention: No Homicidal Ideation: No Homicidal Plan: No Homicidal Intention: No Insight: Poor Judgment: Poor Results Vitals/IOs Vital Signs Date Time Temp Pulse Resp B/P (MAP) Pulse Ox O2 Delivery O2 Flow Rate FiO2 04/09/18 06:59 98.0 41 16 122/58 (79) 95 Intake and Output 04/09/18 04/09/18 04/10/18 08:00 16:00 00:00 Intake Total 240 ml Balance 240 ml Assessment & Plan Problem List: (1) DEMENTIA IN OTH DISEASES CLASSD ELSWHR W BEHAVIORAL DISTURB ICD Codes: F02.81 - DEMENTIA IN OTH DISEASES CLASSD ELSWHR W BEHAVIORAL DISTURB (2) ALZHEIMER'S DISEASE WITH LATE ONSET ICD Codes: G30.1 - ALZHEIMER'S DISEASE WITH LATE ONSET Assessment & Plan Continue current treatment plan Justification for Cont. Inpt. Patient would decompensate in a less restrictive setting Request HC Surrog/Guard Advoc?: Yes Jalen Clemente DO Apr 09, 2018 12:14
[2018-04-09] MEDS: ISOSORBIDE MONONITRATE 60 MG CR TAB (IMDUR) PO SCH (12:56)
[2018-04-09] MEDS: DIVALPROEX SODIUM SPRINKLES 125 MG CAP PO SCH ×2 (12:56→21:55)
[2018-04-09] MEDS: LOSARTAN 50 MG TAB PO SCH (12:57)
[2018-04-09] MEDS: GABAPENTIN 100 MG CAP PO SCH ×2 (12:57→21:55)
[2018-04-09] MEDS: ASPIRIN EC 81 MG TABEC PO SCH (12:57)
[2018-04-09] MEDS: ARIPiprazole 5 MG TAB PO SCH (12:57)
[2018-04-09 15:23] VITALS: BP 135/68; PULSE 64; RESP 18; TEMP 97.3; O2SAT 96
[2018-04-09] MEDS: REMOVE OLD PATCH T-DERMAL SCH (21:55)
[2018-04-09] MEDS: traZODone HCL 50 MG TAB PO SCH (21:55)
[2018-04-09] MEDS: MELATONIN 5 MG TAB PO SCH (21:55)
[2018-04-10 00:37] VITALS: BP 124/58; PULSE 78; RESP 16
[2018-04-10 05:44] VITALS: BP 138/65; PULSE 69; RESP 16; TEMP 97.6; O2SAT 95
[2018-04-10] MEDS: LEVOTHYROXINE SODIUM 125 MCG TAB PO SCH (05:55)
[2018-04-10] MEDS: DIVALPROEX SODIUM SPRINKLES 125 MG CAP PO SCH ×2 (08:29→20:55)
[2018-04-10] MEDS: ISOSORBIDE MONONITRATE 60 MG CR TAB (IMDUR) PO SCH (08:30)
[2018-04-10] MEDS: LOSARTAN 50 MG TAB PO SCH (08:30)
[2018-04-10] MEDS: ASPIRIN EC 81 MG TABEC PO SCH (08:30)
[2018-04-10] MEDS: GABAPENTIN 100 MG CAP PO SCH ×2 (08:30→20:55)
[2018-04-10] MEDS: NICOTINE 21 MG/24 HR PATCH T-DERMAL SCH (08:31)
[2018-04-10] MEDS: ARIPiprazole 5 MG TAB PO SCH (08:41)
--- NOTE | 2018-04-10 15:01 | HHI.PYPN ---
Subjective Remarks Patient seen in his room with nurse Mikki and medical student Nhi. Patient alert, diffusely confused, no significant behavioral problems. Compliant medication. We will check Depakote level in a.m. Review of Systems Except as stated in HPI: all other systems reviewed are Neg Mental Status Examination Appearance: Appropriate Consciousness: Alert Orientation: Person Motor Activity: Normal gait Speech: Unremarkable Language: Adequate Fund of Knowledge: Adequate Attention and Concentration: Easily Distracted Memory: Impaired Mood: Other (Euthymic to somewhat dysphoric and irritable) Affect: Other (Decreased range and intensity) Thought Process & Associations: Other (Somewhat disorganized) Thought Content: Other (Somewhat disorganized) Hallucination Type: None Delusion Type: None Suicidal Ideation: No Suicidal Plan: No Suicidal Intention: No Homicidal Ideation: No Homicidal Plan: No Homicidal Intention: No Insight: Poor Judgment: Poor Results Vitals/IOs Vital Signs Date Time Temp Pulse Resp B/P (MAP) Pulse Ox O2 Delivery O2 Flow Rate FiO2 04/10/18 05:44 97.6 69 16 138/65 (89) 95 Intake and Output 04/10/18 04/10/18 04/11/18 08:00 16:00 00:00 Intake Total 0 ml 480 ml Balance 0 ml 480 ml Assessment & Plan Problem List: (1) DEMENTIA IN OTH DISEASES CLASSD ELSWHR W BEHAVIORAL DISTURB ICD Codes: F02.81 - DEMENTIA IN OTH DISEASES CLASSD ELSWHR W BEHAVIORAL DISTURB (2) ALZHEIMER'S DISEASE WITH LATE ONSET ICD Codes: G30.1 - ALZHEIMER'S DISEASE WITH LATE ONSET Assessment & Plan Estimated LOS: days patient continues confused demented the low behavioral problems. For now continue treatment. We will check Depakote level in a.m. Justification for Cont. Inpt. At this time patient would decompensate a place to a lower level of care Discharge Planning To be determined Request HC Surrog/Guard Advoc?: Yes Lamont Frank MD Apr 10, 2018 15:01
[2018-04-10 18:00] VITALS: BP 135/61; PULSE 72; RESP 16; O2SAT 96
[2018-04-10] MEDS: traZODone HCL 50 MG TAB PO SCH (20:55)
[2018-04-10] MEDS: PILL SPLITTER OTHER PRN (20:55)
[2018-04-10] MEDS: MELATONIN 5 MG TAB PO SCH (20:55)
[2018-04-10] MEDS: REMOVE OLD PATCH T-DERMAL SCH (21:00)
[2018-04-11] MEDS: LEVOTHYROXINE SODIUM 125 MCG TAB PO SCH (06:17)
[2018-04-11 07:04] VITALS: BP 92/54; PULSE 58; RESP 16; TEMP 97.8
[2018-04-11] MEDS: GABAPENTIN 100 MG CAP PO SCH ×2 (08:03→21:18)
[2018-04-11] MEDS: ASPIRIN EC 81 MG TABEC PO SCH (08:03)
[2018-04-11] MEDS: LOSARTAN 50 MG TAB PO SCH (08:03)
[2018-04-11] MEDS: ISOSORBIDE MONONITRATE 60 MG CR TAB (IMDUR) PO SCH (08:03)
[2018-04-11] MEDS: ARIPiprazole 5 MG TAB PO SCH ×2 (08:03→21:17)
[2018-04-11] MEDS: DIVALPROEX SODIUM SPRINKLES 125 MG CAP PO SCH ×2 (08:03→21:17)
[2018-04-11] MEDS: NICOTINE 21 MG/24 HR PATCH T-DERMAL SCH (08:04)
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
[2018-04-11 18:31] VITALS: BP 138/62; PULSE 67; RESP 18; TEMP 97.5; O2SAT 93
[2018-04-11] MEDS: REMOVE OLD PATCH T-DERMAL SCH (21:00)
[2018-04-11] MEDS: traZODone HCL 50 MG TAB PO SCH (21:18)
[2018-04-11] MEDS: MELATONIN 5 MG TAB PO SCH (21:18)
[2018-04-11] MEDS: PILL SPLITTER OTHER PRN (21:59)
[2018-04-12 06:00] VITALS: BP 125/56; PULSE 57; RESP 18; TEMP 97.6; O2SAT 95
[2018-04-12] MEDS: LEVOTHYROXINE SODIUM 125 MCG TAB PO SCH (06:19)
[2018-04-12] MEDS: ASPIRIN EC 81 MG TABEC PO SCH (08:21)
[2018-04-12] MEDS: ARIPiprazole 5 MG TAB PO SCH ×2 (08:21→20:01)
[2018-04-12] MEDS: GABAPENTIN 100 MG CAP PO SCH ×2 (08:21→20:00)
[2018-04-12] MEDS: LOSARTAN 50 MG TAB PO SCH (08:22)
[2018-04-12] MEDS: NICOTINE 21 MG/24 HR PATCH T-DERMAL SCH (08:22)
[2018-04-12] MEDS: DIVALPROEX SODIUM SPRINKLES 125 MG CAP PO SCH ×2 (08:22→20:05)
[2018-04-12] MEDS: ISOSORBIDE MONONITRATE 60 MG CR TAB (IMDUR) PO SCH (08:22)
--- NOTE | 2018-04-12 14:30 | HHI.PYPN ---
Subjective Remarks Patient seen in his room with nurse steffi, chart reviewed, patient complaint medications. Review of medication she will patient on 375 mg Depakote twice a day the blood level of 58. Considering his more recent dyscontrol we will increase the Depakote to 500 mg twice daily check a blood level in 04/16 today patient is calm diffusely confused but sitting quietly in Becca chair in the dayroom. I did talk with 1 of the staff from hospice. She stated that they are aware of this man but he has not been accepted as a hospice patient at this time Review of Systems Except as stated in HPI: all other systems reviewed are Neg Mental Status Examination Appearance: Appropriate Consciousness: Alert Orientation: Person Motor Activity: Normal gait Speech: Unremarkable Language: Adequate Fund of Knowledge: Adequate Attention and Concentration: Easily Distracted Memory: Impaired Mood: Other (Euthymic to somewhat dysphoric and irritable) Affect: Other (Decreased range and intensity) Thought Process & Associations: Other (Somewhat disorganized) Thought Content: Other (Somewhat disorganized) Hallucination Type: None Delusion Type: None Suicidal Ideation: No Suicidal Plan: No Suicidal Intention: No Homicidal Ideation: No Homicidal Plan: No Homicidal Intention: No Insight: Poor Judgment: Poor Results Vitals/IOs Vital Signs Date Time Temp Pulse Resp B/P (MAP) Pulse Ox O2 Delivery O2 Flow Rate FiO2 04/12/18 06:00 97.6 57 18 125/56 (79) 95 Assessment & Plan Problem List: (1) DEMENTIA IN OTH DISEASES CLASSD ELSWHR W BEHAVIORAL DISTURB ICD Codes: F02.81 - DEMENTIA IN OTH DISEASES CLASSD ELSWHR W BEHAVIORAL DISTURB (2) ALZHEIMER'S DISEASE WITH LATE ONSET ICD Codes: G30.1 - ALZHEIMER'S DISEASE WITH LATE ONSET Assessment & Plan Estimated LOS: days patient continues diffusely confused disoriented at the present time no behavior problems see medication adjustment above Justification for Cont. Inpt. At this time patient would decompensate a place to the lower level of care Discharge Planning To be determined Request HC Surrog/Guard Advoc?: Yes Lamont Frank MD Apr 12, 2018 14:30
[2018-04-12 17:57] VITALS: BP 157/81; PULSE 76; RESP 18; O2SAT 95
[2018-04-12] MEDS: traZODone HCL 50 MG TAB PO SCH (20:00)
[2018-04-12] MEDS: MELATONIN 5 MG TAB PO SCH (20:00)
[2018-04-12] MEDS: REMOVE OLD PATCH T-DERMAL SCH (20:25)
[2018-04-13] MEDS: LEVOTHYROXINE SODIUM 125 MCG TAB PO SCH (05:50)
[2018-04-13] MEDS: DIVALPROEX SODIUM SPRINKLES 125 MG CAP PO SCH ×2 (08:40→20:40)
[2018-04-13] MEDS: GABAPENTIN 100 MG CAP PO SCH ×2 (08:41→20:42)
[2018-04-13] MEDS: LOSARTAN 50 MG TAB PO SCH (08:41)
[2018-04-13] MEDS: ISOSORBIDE MONONITRATE 60 MG CR TAB (IMDUR) PO SCH (08:41)
[2018-04-13] MEDS: ARIPiprazole 5 MG TAB PO SCH ×2 (08:41→20:40)
[2018-04-13] MEDS: NICOTINE 21 MG/24 HR PATCH T-DERMAL SCH (08:41)
[2018-04-13] MEDS: ASPIRIN EC 81 MG TABEC PO SCH (08:41)
--- NOTE | 2018-04-13 13:08 | HHI.PYPN ---
Subjective Remarks Patient is seen in day room with medical student Bharti, chart reviewed, patient compliant medication patient continues diffusely confused disoriented but no behavioral problems recently, compliant medications. For now continue treatment Review of Systems Except as stated in HPI: all other systems reviewed are Neg Mental Status Examination Appearance: Appropriate Consciousness: Alert Orientation: Person Motor Activity: Normal gait Speech: Unremarkable Language: Adequate Fund of Knowledge: Adequate Attention and Concentration: Easily Distracted Memory: Impaired Mood: Other (Euthymic to somewhat dysphoric and irritable) Affect: Other (Decreased range and intensity) Thought Process & Associations: Other (Somewhat disorganized) Thought Content: Other (Somewhat disorganized) Hallucination Type: None Delusion Type: None Suicidal Ideation: No Suicidal Plan: No Suicidal Intention: No Homicidal Ideation: No Homicidal Plan: No Homicidal Intention: No Insight: Poor Judgment: Poor Results Vitals/IOs Vital Signs Date Time Temp Pulse Resp B/P (MAP) Pulse Ox O2 Delivery O2 Flow Rate FiO2 04/12/18 17:57 76 18 157/81 (106) 95 04/12/18 06:00 97.6 Intake and Output 04/13/18 04/13/18 04/14/18 08:00 16:00 00:00 Intake Total 480 ml Balance 480 ml Assessment & Plan Problem List: (1) DEMENTIA IN OTH DISEASES CLASSD ELSWHR W BEHAVIORAL DISTURB ICD Codes: F02.81 - DEMENTIA IN OTH DISEASES CLASSD ELSWHR W BEHAVIORAL DISTURB (2) ALZHEIMER'S DISEASE WITH LATE ONSET ICD Codes: G30.1 - ALZHEIMER'S DISEASE WITH LATE ONSET Assessment & Plan Estimated LOS: days patient continues diffusely confused disoriented but no recent behavioral disturbance problems. Compliant medication Justification for Cont. Inpt. At this time patient would decompensate a place to a lower level of care Discharge Planning To be determined placement may become problematic Request HC Surrog/Guard Advoc?: Yes Lamont Frank MD Apr 13, 2018 13:08
[2018-04-13 18:34] VITALS: BP 129/83; PULSE 54; RESP 16; TEMP 97.5; O2SAT 96
[2018-04-13 20:40] VITALS: BP 166/97; PULSE 56
[2018-04-13] MEDS: traZODone HCL 50 MG TAB PO SCH (20:41)
[2018-04-13] MEDS: MELATONIN 5 MG TAB PO SCH (20:42)
[2018-04-13] MEDS: REMOVE OLD PATCH T-DERMAL SCH (21:00)
[2018-04-14] MEDS: LEVOTHYROXINE SODIUM 125 MCG TAB PO SCH (05:57)
[2018-04-14 06:15] VITALS: BP 162/68; PULSE 59; RESP 18; TEMP 97.4; O2SAT 94
[2018-04-14] MEDS: NICOTINE 21 MG/24 HR PATCH T-DERMAL SCH (09:00)
[2018-04-14] MEDS: ASPIRIN EC 81 MG TABEC PO SCH (09:27)
[2018-04-14] MEDS: LOSARTAN 50 MG TAB PO SCH (09:28)
[2018-04-14] MEDS: ARIPiprazole 5 MG TAB PO SCH (09:30)
[2018-04-14] MEDS: ISOSORBIDE MONONITRATE 60 MG CR TAB (IMDUR) PO SCH (09:31)
[2018-04-14] MEDS: GABAPENTIN 100 MG CAP PO SCH (09:32)
[2018-04-14] MEDS: DIVALPROEX SODIUM SPRINKLES 125 MG CAP PO SCH (09:33)
[2018-04-14] MEDS ORDERED: GABA100C4 PO (10:41)
[2018-04-14] MEDS ORDERED: LOSA100T PO (10:41)
[2018-04-14] MEDS ORDERED: ISOS60TA PO (10:41)
[2018-04-14] MEDS ORDERED: TRAZ50TA12 PO (10:41)
[2018-04-14] MEDS ORDERED: LEVO125T4 PO (10:41)
[2018-04-14] MEDS ORDERED: MELA3TAB52 PO (10:41)
[2018-04-14] MEDS ORDERED: AMLO10 PO (10:41)
[2018-04-14] MEDS ORDERED: DIVA125C PO (10:41)
--- NOTE | 2018-04-14 10:47 | HHI.DS ---
Psychiatry Discharge Summary Inpatient Psychiatric care?: Yes Advance Directive: No Mental Health AdvanceDirective: No Health Care Proxy: Cruger and Phone Number: AIYANA YU [phone] Admission Admission Date April 06, 2018 at 20:00 Admission Diagnosis: (1) DEMENTIA IN OTH DISEASES CLASSD ELSWHR W BEHAVIORAL DISTURB ICD Code: F02.81 - DEMENTIA IN OTH DISEASES CLASSD ELSWHR W BEHAVIORAL DISTURB (2) ALZHEIMER'S DISEASE WITH LATE ONSET ICD Code: G30.1 - ALZHEIMER'S DISEASE WITH LATE ONSET Brief History Patient initially admitted under visit [id number] please see H&P dictated on to that visit number Tobacco Use In Past 30 Days: No Tobacco Past 30 Days Alcohol Use: Never Hospital Course Patient's hospital course was uneventful, his cognitive deficits, his dementia remain consistent, his irritability aggressiveness diminished significantly. With the adjustments with the medications. He is more easily redirectable. He more approachable. Compliant. At this time he has reached maximum benefit of this hospitalization patient was discharged today to [facility] in [facility] with Rx 1 month, we will refer also to hospice, follow-up services through that facility Results Blood Pressure 162 / 68 Vital Signs Date Time Temp Pulse Resp B/P (MAP) Pulse Ox O2 Delivery O2 Flow Rate FiO2 04/14/18 06:15 97.4 59 18 162/68 (99) 94 Laboratory Results Test 04/08/18 09:07 04/11/18 07:10 Cholesterol Level 203 MG/DL (120-200) HDL Cholesterol 37.7 MG/DL (40.0-60.0) Hemoglobin A1c 7.0 % (4.3-6.0) LDL Cholesterol 133 MG/DL (0-99) Triglycerides Level 162 MG/DL (42-150) Valproic Acid (Depakene) Level 56 MCG/ML (50-100) Summary of Procedures None done Pending results at discharge: No Medications # of Antipsychotic meds at D/C: 1 Approp Antipsych med options 1 - Minimum of three failed multiple trials of monotherapy. 2 - Documented plan to taper to monotherapy due to previous use of multiple meds OR cross-taper in progress at D/C. 3 - Documentation of augmentation of Clozapine. 4 - Justification other than those listed in allowable values 1-3, document here : Discharge Discharge Date: Apr 14, 2018 Discharge Diagnosis: (1) DEMENTIA IN OTH DISEASES CLASSD ELSWHR W BEHAVIORAL DISTURB Diagnosis: Principal ICD Code: F02.81 - DEMENTIA IN OTH DISEASES CLASSD ELSWHR W BEHAVIORAL DISTURB (2) ALZHEIMER'S DISEASE WITH LATE ONSET Diagnosis: Principal ICD Code: G30.1 - ALZHEIMER'S DISEASE WITH LATE ONSET Pt Condition on Discharge: Stable Discharge Disposition: Discharge to SNF Discharge Instructions Diet Instructions: As Tolerated, No Restrictions Activities you can perform: Regular-No Restrictions Scheduled Appointment: [place] Discharge Time > 30 minutes Mental Status Examination Appearance: Appropriate Consciousness: Alert Orientation: Person Motor Activity: Normal gait Speech: Unremarkable Language: Adequate Fund of Knowledge: Adequate Attention and Concentration: Easily Distracted Memory: Impaired Mood: Other (Euthymic to somewhat dysphoric and irritable) Affect: Other (Decreased range and intensity) Thought Process & Associations: Other (Somewhat disorganized) Thought Content: Other (Somewhat disorganized) Hallucination Type: None Delusion Type: None Suicidal Ideation: No Suicidal Plan: No Suicidal Intention: No Homicidal Ideation: No Homicidal Plan: No Homicidal Intention: No Insight: Poor Judgment: Poor Discharge/Advance Care Plan Health Problems: (1) DEMENTIA IN OTH DISEASES CLASSD ELSWHR W BEHAVIORAL DISTURB (2) ALZHEIMER'S DISEASE WITH LATE ONSET Goals to promote your health * To prevent worsening of your condition and complications * To maintain your health at the optimal level Directions to meet your goals Take your medications as prescribed Follow your dietary instruction Follow activity as directed Keep your appointments as scheduled Take your immunizations and boosters as scheduled If your symptoms worsen call your PCP, if no PCP go to Urgent Care Center or Emergency Room For 24/ questions related to your inpatient stay or results of tests pending at discharge, please contact Dr. Lamont Frank at Smoking is Dangerous to Your Health. Avoid second hand smoking Lamont Frank MD Apr 14, 2018 10:47
[2018-04-14] MEDS ORDERED: ARIP1TAB11 PO (11:16)
== END 2018-04-14 13:50 | DRG 57 ==
LOC: H250 20:00
PROVIDERS: ADMIT Psychiatry & Neurology Psychiatry; ATTEND Psychiatry & Neurology Psychiatry
DX: G30.1 Alzheimer's disease with late onset (principal); F02.81 Dementia in other diseases classified elsewhere, unspecified severity, with behavioral disturbance; I48.91 Unspecified atrial fibrillation; E11.9 Type 2 diabetes mellitus without complications; E03.9 Hypothyroidism, unspecified; I10 Essential (primary) hypertension; I25.10 Atherosclerotic heart disease of native coronary artery without angina pectoris; Z66 Do not resuscitate; Z86.74 Personal history of sudden cardiac arrest; Z95.1 Presence of aortocoronary bypass graft; Z79.82 Long term (current) use of aspirin; Z87.891 Personal history of nicotine dependence
CPT/HCPCS: 80048; 80061; 80164; 83036